=== PATIENT | female | born 1960 | race Caucasian/White ===

== ENCOUNTER 2021-01-11 14:35 | Inpatient (IN) | payer MEDICAID, OTHER ==
[~2021-01-11] VITALS: Ht 175.3 cm; Wt 104.3 kg
[2021-01-11] MEDS ORDERED: InsuLIN REG 1unit/0.01ml Soln (100units/ml) IV ONE (14:45)
[2021-01-11] MEDS ORDERED: SODIUM CHLORIDE 0.9% 1,000 ML IV ONE (14:45)
[2021-01-11 15:13] LABS: Hematocrit 45.7 % (36.0-46.0); Hemoglobin 15.1 g/dL (12.2-16.2); Mean Corpuscular Hemoglobin 28.1 pg (28.0-32.0); Mean Corpuscular Hgb Conc. 33.1 g/dL (32.0-36.0); Platelet Count (auto) 483 10^3/uL (140-450); Red Blood Cells 5.38 10^6/uL (4.0-5.20); Red Cell Distribution Width 15.7 % (11.8-14.3); White Blood Cell 9.1 10^3/uL (4.4-10.8)
[2021-01-11 15:17] LABS: Basophils % (manual) 0 (0.0-2.0); Blast Cells 0; Eosinophils % (manual) 0 (0-7); Reactive Lymphocytes 0
[2021-01-11 15:31] LABS: Alanine Aminotransferase 15 U/L (13-56); Albumin 2.8 g/dL (3.4-5.0); Anion Gap 16 (5-15); Blood Urea Nitrogen 16 mg/dL (7-18); Calcium 8.6 mg/dL (8.5-10.1); Carbon Dioxide 13 mmol/L (21-32); Chloride 103 mmol/L (98-107); Potassium 3.8 mmol/L (3.5-5.1); Sodium 132 mmol/L (136-145)
[2021-01-11 15:40] LABS: Alkaline Phosphatase 146 U/L (45-117); Aspartate Aminotransferase 15 U/L (15-37); BUN/Creatinine Ratio 12.3; Bilirubin, Total 0.6 mg/dL (0.2-1.0); CRP High Sensitivity 9.06 mg/dL (< 0.3); GFR African American 54 mL/min; GFR Non-African American 44 mL/min; Total Protein 7.6 g/dL (6.4-8.2)
[2021-01-11 15:47] LABS: Glucose 503 mg/dL (74-106)
[2021-01-11] MEDS ORDERED: MORPHINE SULF INJ 2 MG/ML SYRINGE 1ML IV ONE (16:15)
[2021-01-11] MEDS ORDERED: ONDANSETRON HCL 4 MG/2 ML VIAL IV ONE (16:15)
[2021-01-11 16:16] LABS: Band Neutrophils % (manual) 25; Lymphocytes % (manual) 18 (10.0-50.0); Metamyelocytes % 1; Monocytes % (manual) 2 (0-12); Myelocytes % 2; Promyelocytes % 1
[2021-01-11] MEDS ORDERED: INSULIN LANTUS (GLARGINE) 1 /0.01ml (100units/ml) SC ONE (16:45)
[2021-01-11] MEDS ORDERED: InsuLIN R (HUMAN) 100 UNITS in SODIUM CHL 0.9% 99 ML IV SCH ×2 (16:45→20:00)
[2021-01-11] MEDS ORDERED: DEXTROSE (50%) 50ML SYRG IV PRN (16:45)
[2021-01-11] MEDS ORDERED: SODIUM CHLORIDE 0.9% 2,000 ML IV ONE (17:30)
[2021-01-11] MEDS ORDERED: ACETAMINOPHEN 325 MG TAB PO PRN (17:30)
[2021-01-11] MEDS ORDERED: NITROGLYCERIN 0.4 MG SL TAB SL PRN (17:30)
[2021-01-11] MEDS ORDERED: MORPHINE SULF INJ 2 MG/ML SYRINGE 1ML IV PRN (17:30)
[2021-01-11] MEDS: ACCU-CHEK COMFORT CURVE STRIP VI SCH ×4 (18:24→22:30)
[2021-01-11 19:27] LABS: BUN/Creatinine Ratio 15.2; Calcium 8.8 mg/dL (8.5-10.1); Potassium 3.4 mmol/L (3.5-5.1)
[2021-01-11] MEDS: MORPHINE SULF INJ 2 MG/ML SYRINGE 1ML IV PRN (20:43)
[2021-01-12] MEDS: HYDROcodone-ACET 5/325MG TAB PO PRN ×2 (00:33→08:07)
[2021-01-12 01:44] LABS: Anion Gap 10 (5-15); Blood Urea Nitrogen 12 mg/dL (7-18); Carbon Dioxide 15 mmol/L (21-32); Chloride 113 mmol/L (98-107); Glucose 197 mg/dL (74-106); Potassium 3.4 mmol/L (3.5-5.1); Sodium 138 mmol/L (136-145)
[2021-01-12] MEDS: ACCU-CHEK COMFORT CURVE STRIP VI SCH ×11 (01:45→23:49)
[2021-01-12 01:47] LABS: GFR African American 87 mL/min; GFR Non-African American 72 mL/min
[2021-01-12] MEDS: MORPHINE SULF INJ 2 MG/ML SYRINGE 1ML IV PRN ×4 (03:18→20:47)
[2021-01-12 05:59] LABS: Potassium 3.4 mmol/L (3.5-5.1)
[2021-01-12 06:10] LABS: BUN/Creatinine Ratio 14.5; Calcium 8.9 mg/dL (8.5-10.1)
[2021-01-12] MEDS: InsuLIN R (HUMAN) 100 UNITS in SODIUM CHL 0.9% 99 ML IV SCH ×2 (06:15→07:39)
[2021-01-12] MEDS ORDERED: DEXTROSE (50%) 50ML SYRG IV PRN ×2 (08:00)
[2021-01-12] MEDS ORDERED: InsuLIN REG 1unit/0.01ml Soln (100units/ml) SC SCH (08:00)
[2021-01-12] MEDS ORDERED: ACCU-CHEK COMFORT CURVE STRIP VI SCH (08:00)
[2021-01-12] MEDS: InsuLIN REG 1unit/0.01ml Soln (100units/ml) SC SCH ×5 (09:04→23:54)
[2021-01-12] MEDS ORDERED: INSULIN LANTUS (GLARGINE) 1 /0.01ml (100units/ml) SC SCH ×2 (10:00→17:00)
[2021-01-12] MEDS ORDERED: IOHEXOL 350 MG/ML 100ML IJ ONE (10:26)
[2021-01-12] MEDS ORDERED: POTASSIUM EFFERVESENT TAB 25 MEQ PO ONE (10:30)
[2021-01-12] MEDS ORDERED: POLYETHYLENE GLYCOL 17 GM PWDR PO ONE (12:30)
[2021-01-12] MEDS: APIXABAN 5 MG TAB PO SCH ×2 (13:15→22:29)
[2021-01-12 15:17] LABS: Urine Bacteria FEW /hpf (None Seen); Urine Blood 1+ /uL (Negative); Urine Specific Gravity 1.021 (1.001-1.035); Urine WBC 1 /hpf (0 - 5)
[2021-01-12] MEDS: INSULIN LANTUS (GLARGINE) 1 /0.01ml (100units/ml) SC SCH (17:12)
[2021-01-12 18:41] VITALS: BP 121/60
[2021-01-12] MEDS ORDERED: QUET50TA PO (21:56)
[2021-01-12] MEDS ORDERED: GLIP10TA9 PO (21:56)
[2021-01-12 22:00] VITALS: BP 120/69
[2021-01-12] MEDS ORDERED: APIXABAN 5 MG TAB PO SCH (22:00)
[2021-01-12] MEDS: DOCUSATE SOD 100 MG CAP PO SCH (22:28)
[2021-01-13] MEDS: ACCU-CHEK COMFORT CURVE STRIP VI SCH ×5 (04:04→20:20)
[2021-01-13] MEDS: MORPHINE SULF INJ 2 MG/ML SYRINGE 1ML IV PRN ×4 (04:08→22:05)
[2021-01-13] MEDS: InsuLIN REG 1unit/0.01ml Soln (100units/ml) SC SCH ×5 (04:09→20:24)
[2021-01-13 05:00] VITALS: BP 125/80
[2021-01-13] MEDS: HYDROcodone-ACET 5/325MG TAB PO PRN ×2 (08:10→20:23)
[2021-01-13 09:00] VITALS: BP 100/64
[2021-01-13] MEDS: DOCUSATE SOD 100 MG CAP PO SCH ×2 (10:08→22:05)
[2021-01-13] MEDS: APIXABAN 5 MG TAB PO SCH ×2 (10:08→22:05)
[2021-01-13 13:00] VITALS: BP 110/68
[2021-01-13] MEDS ORDERED: BLOO-200 XX (15:14)
[2021-01-13] MEDS ORDERED: DOCU100C10 PO (15:14)
[2021-01-13] MEDS ORDERED: INSLANTI SC (15:14)
[2021-01-13] MEDS ORDERED: INSU100I43 SC (15:14)
[2021-01-13] MEDS ORDERED: APIX5TAB PO (15:14)
[2021-01-13] MEDS ORDERED: ALCO1PAD XX (15:14)
[2021-01-13] MEDS: INSULIN LANTUS (GLARGINE) 1 /0.01ml (100units/ml) SC SCH (16:40)
[2021-01-13 16:42] VITALS: BP 107/72
[2021-01-14] MEDS: ACCU-CHEK COMFORT CURVE STRIP VI SCH ×5 (00:23→15:35)
[2021-01-14] MEDS: InsuLIN REG 1unit/0.01ml Soln (100units/ml) SC SCH ×5 (00:25→15:36)
[2021-01-14] MEDS: MORPHINE SULF INJ 2 MG/ML SYRINGE 1ML IV PRN ×3 (04:20→16:16)
[2021-01-14 05:00] VITALS: BP 109/69
[2021-01-14 09:00] VITALS: BP 119/77
[2021-01-14] MEDS: DOCUSATE SOD 100 MG CAP PO SCH (09:09)
[2021-01-14] MEDS: APIXABAN 5 MG TAB PO SCH (09:09)
[2021-01-14 13:00] VITALS: BP 122/88
[2021-01-14 16:55] VITALS: BP 113/78
[2021-01-14] MEDS: INSULIN LANTUS (GLARGINE) 1 /0.01ml (100units/ml) SC SCH (17:13)
[2021-01-19] MEDS ORDERED: APIXABAN 5 MG TAB PO SCH (22:00)
== END 2021-01-14 19:05 | disposition home health service (06) | DRG 420 ==
LOC: ER 14:35 → EDBD 14:35 → TELE 17:39 → TELE-CENTR 01-12 17:48
PROVIDERS: ADMIT Internal Medicine; ATTEND Internal Medicine
DX: E11.10 Type 2 diabetes mellitus with ketoacidosis without coma (principal); I26.99 Other pulmonary embolism without acute cor pulmonale; J96.00 Acute respiratory failure, unspecified whether with hypoxia or hypercapnia; D73.5 Infarction of spleen; E66.9 Obesity, unspecified; Z68.34 Body mass index [BMI] 34.0-34.9, adult; I11.0 Hypertensive heart disease with heart failure; I25.10 Atherosclerotic heart disease of native coronary artery without angina pectoris; I50.9 Heart failure, unspecified; J98.11 Atelectasis; Z20.822 Contact with and (suspected) exposure to COVID-19; Z79.01 Long term (current) use of anticoagulants; Z79.4 Long term (current) use of insulin; Z86.718 Personal history of other venous thrombosis and embolism; Z89.511 Acquired absence of right leg below knee; Z89.512 Acquired absence of left leg below knee; Z89.612 Acquired absence of left leg above knee; Z90.710 Acquired absence of both cervix and uterus; Z90.49 Acquired absence of other specified parts of digestive tract; G89.29 Other chronic pain; M25.512 Pain in left shoulder; R91.1 Solitary pulmonary nodule; Z88.8 Allergy status to other drugs, medicaments and biological substances; D68.59 Other primary thrombophilia
CPT/HCPCS: 36415; 36600; 71045; 71275; 80048; 80053; 81001; 82728; 82805; 82962; 83036; 83735; 83880; 84484; 85007; 85027; 85379; 86141; 87426; 93005; 93306; 93970; 96365; 96372; 96375; 99291; G0378; J1815; J2405

== ENCOUNTER 2021-02-14 01:15 | Emergency (ER) | payer MEDICAID ==
[~2021-02-14] VITALS: Ht 175.3 cm; Wt 90.7 kg
[~2021-02-14 01:15] MED LIST: ALCO1PAD XX; APIX5TAB PO; BLOO-200 XX; DOCU100C10 PO; INSLANTI SC; INSU100I43 SC; QUET50TA PO
[2021-02-14 03:10] LABS: Hemoglobin 11.2 g/dL (12.2-16.2); Mean Corpuscular Volume 85.4 fL (80.0-100.0)
[2021-02-14 03:11] LABS: Hematocrit 36.8 % (36.0-46.0); Mean Corpuscular Hgb Conc. 30.4 g/dL (32.0-36.0); Platelet Count (auto) 717 10^3/uL (140-450); Red Blood Cells 4.32 10^6/uL (4.0-5.20); White Blood Cell 16.9 10^3/uL (4.4-10.8)
[2021-02-14 03:19] LABS: Basophils % (manual) 0 (0.0-2.0); Blast Cells 0; Promyelocytes % 0; Reactive Lymphocytes 0
[2021-02-14 03:23] LABS: INR 1.02 (0.9-1.15)
[2021-02-14 03:31] LABS: Potassium 3.3 mmol/L (3.5-5.1)
[2021-02-14 03:42] LABS: Albumin 2.5 g/dL (3.4-5.0); BUN/Creatinine Ratio 16.9; Bilirubin, Total 0.4 mg/dL (0.2-1.0); CRP High Sensitivity 12.4 mg/dL (< 0.3); Calcium 8.8 mg/dL (8.5-10.1)
[2021-02-14] MEDS ORDERED: POTASSIUM CHL 20MEQ/100ML 100 ML IV ONE (05:15)
[2021-02-14] MEDS ORDERED: SODIUM CHLORIDE 0.9% 1,000 ML IV ONE (05:15)
[2021-02-14] MEDS ORDERED: OXYCODONE W/ ACETAMINOPHEN 5/325MG TABLET PO ONE (05:15)
[2021-02-14] MEDS ORDERED: IOHEXOL 300 MG/ML 100ML BOTTLE IJ ONE (05:18)
[2021-02-14 05:35] LABS: Band Neutrophils % (manual) 6; Eosinophils % (manual) 1 (0-7); Lymphocytes % (manual) 24 (10.0-50.0); Metamyelocytes % 2; Monocytes % (manual) 7 (0-12); Myelocytes % 1
[2021-02-14] MEDS ORDERED: PIPERACILLIN-TAZOB 3.375GM 100 ML IV ONE (06:00)
[2021-02-14] MEDS ORDERED: ENOXAPARIN SOD 100 MG/1 ML SYRINGE SC ONE (06:30)
[2021-02-14] MEDS ORDERED: IOHEXOL 350 MG/ML 100ML IJ ONE (10:49)
[2021-02-14] MEDS ORDERED: SODIUM CHLORIDE 0.9% 500 ML IV ONE (11:00)
[2021-02-14 12:24] LABS: Urine Bacteria NONE SEEN /hpf (None Seen); Urine Blood Negative /uL (Negative); Urine Specific Gravity 1.025 (1.001-1.035); Urine WBC 3 /hpf (0 - 5)
[2021-02-14] MEDS ORDERED: HYDROmorphone HCL 2 MG/ML VL IV ONE ×2 (13:30→18:15)
[2021-02-14] MEDS ORDERED: HEPARIN DRIP/D5W 100UNITS/ML 250 ML IV SCH (15:15)
[2021-02-14] MEDS ORDERED: HEPARIN SODIUM (PORCINE) 5000 UNITS/ML 1ML VIAL IV ONE (15:15)
[2021-02-14 18:04] LABS: INR 1.1 (0.9-1.15); Partial Thromboplastin Time 43.1 sec (23.0-31.2)
[2021-02-14 21:00] VITALS: BP 153/70
== END 2021-02-14 21:14 | disposition short-term general hospital (02) ==
LOC: EDBD 01:15 → ER 01:16
DX: I26.99 Other pulmonary embolism without acute cor pulmonale (principal); D73.5 Infarction of spleen; M79.604 Pain in right leg; F41.9 Anxiety disorder, unspecified; E11.9 Type 2 diabetes mellitus without complications; I10 Essential (primary) hypertension; E43 Unspecified severe protein-calorie malnutrition; E66.01 Morbid (severe) obesity due to excess calories; K46.9 Unspecified abdominal hernia without obstruction or gangrene; E11.65 Type 2 diabetes mellitus with hyperglycemia; Z20.822 Contact with and (suspected) exposure to COVID-19; Z86.718 Personal history of other venous thrombosis and embolism; Z89.612 Acquired absence of left leg above knee; Z68.29 Body mass index [BMI] 29.0-29.9, adult; Z89.511 Acquired absence of right leg below knee; Z79.899 Other long term (current) drug therapy; Z88.1 Allergy status to other antibiotic agents; Z88.8 Allergy status to other drugs, medicaments and biological substances
CPT/HCPCS: 36415; 71045; 73552; 74177; 75635; 80053; 81001; 82962; 83605; 83690; 83735; 83880; 84484; 85007; 85027; 85379; 85610; 85652; 85730; 86141; 87040; 87086; 87426; 93005; 93971; 96361; 96365; 96366; 96367; 96372; 96375; 96376; 99285; C9803; J1170; J1644; J1650; J2543; J3480; J7040; Q9967; U0003; 96368

== ENCOUNTER 2021-06-20 12:56 | Emergency (ER) | payer MEDICAID ==
[2021-06-20 13:56] LABS: Hematocrit 41.9 % (36.0-46.0); Hemoglobin 14.2 g/dL (12.2-16.2); Mean Corpuscular Hemoglobin 28.9 pg (28.0-32.0); Mean Corpuscular Hgb Conc. 33.8 g/dL (32.0-36.0); Mean Corpuscular Volume 85.6 fL (80.0-100.0); White Blood Cell 7.4 10^3/uL (4.4-10.8)
[2021-06-20 14:09] LABS: Band Neutrophils % (manual) 0; Basophils % (manual) 0 (0.0-2.0); Blast Cells 0; Metamyelocytes % 0; Myelocytes % 0; Promyelocytes % 0
[2021-06-20 14:16] LABS: Albumin 2.9 g/dL (3.4-5.0); Calcium 8.6 mg/dL (8.5-10.1); Potassium 4.5 mmol/L (3.5-5.1)
[2021-06-20 14:19] LABS: BUN/Creatinine Ratio 25.7; Bilirubin, Total 0.5 mg/dL (0.2-1.0); Total Protein 7.4 g/dL (6.4-8.2)
[2021-06-20 17:04] LABS: Eosinophils % (manual) 2 (0-7); Lymphocytes % (manual) 34 (10.0-50.0); Monocytes % (manual) 14 (0-12); Reactive Lymphocytes 2
[2021-06-20] MEDS ORDERED: ONDANSETRON HCL 4 MG/2 ML VIAL IV ONE (18:00)
[2021-06-20] MEDS ORDERED: MORPHINE SULFATE 4 MG/ML SYR/VIAL IV ONE (18:00)
[2021-06-20] MEDS ORDERED: SODIUM CHLORIDE 0.9% 1,000 ML IV ONE (18:00)
[2021-06-20] MEDS ORDERED: IOHEXOL 300 MG/ML 100ML BOTTLE IJ ONE (20:47)
[2021-06-20] MEDS ORDERED: MORPHINE SULF INJ 2 MG/ML SYRINGE 1ML ONE (21:26)
[2021-06-20] MEDS ORDERED: MORPHINE SULF INJ 2 MG/ML SYRINGE 1ML IV ONE (22:00)
[2021-06-21] VITALS: BP 107/63
[2021-06-21] MEDS ORDERED: ONDANSETRON HCL 4 MG/2 ML VIAL IV ONE (04:15)
[2021-06-21] MEDS ORDERED: ACETAMINOPHEN 500 MG TAB PO ONE (04:15)
[2021-06-21] MEDS ORDERED: fentaNYL CITRATE 100 MCG/2 ML VL IV ONE ×2 (04:15→04:45)
== END 2021-06-21 07:53 | disposition home or self-care (01) ==
LOC: EDBD 12:56 → ER 12:56
DX: Z48.00 Encounter for change or removal of nonsurgical wound dressing (principal); R21 Rash and other nonspecific skin eruption; R22.2 Localized swelling, mass and lump, trunk; F41.9 Anxiety disorder, unspecified; E11.9 Type 2 diabetes mellitus without complications; Z89.619 Acquired absence of unspecified leg above knee; Z89.519 Acquired absence of unspecified leg below knee; Z90.49 Acquired absence of other specified parts of digestive tract; Z79.899 Other long term (current) drug therapy; Z88.1 Allergy status to other antibiotic agents; Z88.8 Allergy status to other drugs, medicaments and biological substances
CPT/HCPCS: 36415; 74177; 80053; 83605; 85007; 85027; 87040; 96361; 96374; 96375; 96376; 99285; J2270; J2405; J3010; Q9967

== ENCOUNTER 2021-11-29 21:21 | Emergency (ER) | payer MEDICAID ==
[~2021-11-29] VITALS: Ht 167.6 cm; Wt 109.8 kg
[2021-11-29] MEDS ORDERED: HYDROcodone-ACET 10/325MG TAB PO ONE (21:45)
[2021-11-29] MEDS ORDERED: MORPHINE SULFATE INJECTION 2 MG/ML SYRG IM ONE (23:00)
[2021-11-30 04:52] VITALS: BP 140/105
== END 2021-11-30 07:13 | disposition home or self-care (01) ==
LOC: ER 21:21 → EDUNIT# 21:21 → EDSEX 21:21 → EDBD 21:21 → ER 11-30 07:13
DX: G89.29 Other chronic pain (principal); M79.605 Pain in left leg; M79.604 Pain in right leg; E66.9 Obesity, unspecified; E11.9 Type 2 diabetes mellitus without complications; E03.9 Hypothyroidism, unspecified; Z68.39 Body mass index [BMI] 39.0-39.9, adult; Z89.612 Acquired absence of left leg above knee; Z89.611 Acquired absence of right leg above knee; Z90.49 Acquired absence of other specified parts of digestive tract; Z90.710 Acquired absence of both cervix and uterus; Z79.4 Long term (current) use of insulin; Z79.899 Other long term (current) drug therapy; Z88.1 Allergy status to other antibiotic agents; Z88.8 Allergy status to other drugs, medicaments and biological substances
CPT/HCPCS: 96372; 99283; J2270

== ENCOUNTER 2021-12-12 01:48 | Inpatient (IN) | payer MEDICAID ==
[~2021-12-12] VITALS: Ht 137.2 cm; Wt 120.1 kg
[2021-12-12] MEDS ORDERED: MORPHINE SULFATE 4 MG/ML SYR/VIAL IV ONE (02:15)
[2021-12-12] MEDS ORDERED: ONDANSETRON HCL 4 MG/2 ML VIAL IV ONE ×3 (02:15→15:30)
[2021-12-12 04:15] LABS: Potassium 4.9 mmol/L (3.5-5.1)
[2021-12-12 04:19] LABS: Albumin 2.7 g/dL (3.4-5.0); Calcium 8.8 mg/dL (8.5-10.1)
[2021-12-12 04:22] LABS: Bilirubin, Total 0.4 mg/dL (0.2-1.0); Total Protein 7.9 g/dL (6.4-8.2)
[2021-12-12 04:30] LABS: Basophils # (auto) 0.1 10 ^3/uL (0-0.2); Basophils % (auto) 0.3 % (0.0-2.0); Monocytes # (auto) 0.8 10 ^3/uL (0-1.3)
[2021-12-12 04:32] LABS: Eosinophils # (auto) 0.1 10 ^3/uL (0-0.8); Eosinophils % (auto) 0.2 % (0.0-7.0); Hemoglobin 12.7 g/dL (12.2-16.2); Lymphocytes # (auto) 1.3 10 ^3/uL (0.4-5.4); Lymphocytes % (auto) 6.1 % (10.0-50.0); Mean Corpuscular Hemoglobin 28.2 pg (28.0-32.0); Mean Corpuscular Hgb Conc. 32.6 g/dL (32.0-36.0); Mean Corpuscular Volume 86.7 fL (80.0-100.0); Monocytes % (auto) 3.6 % (0.0-12.0); Neutrophils # (auto) 19.5 10 ^3/uL (1.6-8.6); Neutrophils % (auto) 89.8 % (37.0-80.0); Nucleated Red Blood Cells % 0.1 %; Red Blood Cells 4.49 10^6/uL (4.0-5.20); Red Cell Distribution Width 14.2 % (11.8-14.3); White Blood Cell 21.7 10^3/uL (4.4-10.8)
[2021-12-12] MEDS ORDERED: SODIUM CHLORIDE 0.9% 1,000 ML IV ONE (05:00)
[2021-12-12] MEDS ORDERED: InsuLIN REG 1unit/0.01ml Soln (100units/ml) IV ONE ×2 (05:00→16:45)
[2021-12-12 05:54] LABS: Urine Bacteria FEW /hpf (None Seen); Urine Blood TRACE /uL (Negative); Urine Specific Gravity 1.016 (1.001-1.035); Urine WBC 1184 /hpf (0 - 5); Urine WBC Clumps PRESENT /hpf (None Seen)
[2021-12-12] MEDS ORDERED: cefTRIAXone 1GM/50ML D5W 50 ML IV ONE (06:00)
[2021-12-12] MEDS ORDERED: MORPHINE SULFATE INJECTION 2 MG/ML SYRG IV ONE ×2 (08:45→15:30)
[2021-12-12] MEDS ORDERED: FUROSEMIDE 40 MG/4 ML VIAL IV ONE (10:00)
[2021-12-12] MEDS ORDERED: fentaNYL CITRATE 100 MCG/2 ML VL IV ONE (11:45)
[2021-12-12] MEDS ORDERED: DEXTROSE (50%) 50ML SYRG IV PRN ×2 (13:00→20:30)
[2021-12-12] MEDS ORDERED: levoFLOXacin 500MG 100 ML IV ONE (13:00)
[2021-12-12] MEDS ORDERED: METOCLOPRAMIDE HCL 5MG/ml INJ 2ml VIAL IV PRN (15:45)
[2021-12-12] MEDS ORDERED: ACETAMINOPHEN 325 MG TAB PO PRN (15:45)
[2021-12-12] MEDS ORDERED: PIPERACILLIN-TAZOB 3.375GM 100 ML IV ONE (15:45)
[2021-12-12] MEDS: ACCU-CHEK COMFORT CURVE STRIP VI SCH ×3 (16:00→23:34)
[2021-12-12] MEDS: InsuLIN REG 1unit/0.01ml Soln (100units/ml) SC SCH ×3 (17:01→23:34)
[2021-12-12] MEDS ORDERED: SODIUM CHLORIDE 0.9% 2,000 ML IV ONE (18:00)
[2021-12-12] MEDS ORDERED: SODIUM CHLORIDE 0.9% 1,000 ML IV SCH (18:00)
[2021-12-12] MEDS ORDERED: InsuLIN REG 1unit/0.01ml Soln (100units/ml) SC ONE (20:15)
[2021-12-12 20:30] VITALS: BP 147/97
[2021-12-12] MEDS: MORPHINE SULFATE INJECTION 2 MG/ML SYRG IV PRN (20:46)
[2021-12-12] MEDS ORDERED: INSLANTI SC ×2 (21:37)
[2021-12-12] MEDS ORDERED: ALPR0.5T PO (21:37)
[2021-12-12] MEDS ORDERED: ZOLP10TA PO (21:37)
[2021-12-12] MEDS ORDERED: HYDR-4072 PO (21:37)
[2021-12-12] MEDS ORDERED: INSLISPI SC (21:37)
[2021-12-12 21:46] VITALS: BP 129/87
[2021-12-12 22:00] VITALS: BP 142/97
[2021-12-12] MEDS: INSULIN LANTUS (GLARGINE) 1 /0.01ml (100units/ml) SC SCH (23:33)
[2021-12-13] MEDS ORDERED: SODIUM CHLORIDE 0.9% 1,000 ML IV SCH
[2021-12-13] MEDS ORDERED: FUROSEMIDE 20 MG/2 ML VIAL IV ONE
[2021-12-13] MEDS: HYDROcodone-ACET 5/325MG TAB PO PRN ×3 (00:23→17:43)
[2021-12-13] MEDS ORDERED: IPRATROPIUM BROM 0.5 MG/2.5ML INH SOL NEB PRN (00:45)
[2021-12-13] MEDS ORDERED: ALBUTEROL SULF 2.5 MG/0.5ML(0.5%) NEB SOLN NEB PRN (00:45)
[2021-12-13 00:48] LABS: Glucose 560 mg/dL (74-106)
[2021-12-13 00:49] LABS: Sodium 131 mmol/L (136-145)
[2021-12-13 00:50] LABS: Anion Gap 13 (5-15); BUN/Creatinine Ratio 11.1; Blood Urea Nitrogen 41 mg/dL (7-18); Carbon Dioxide 16 mmol/L (21-32); Chloride 102 mmol/L (98-107); GFR African American 16 mL/min; GFR Non-African American 13 mL/min
[2021-12-13] MEDS ORDERED: CALCIUM GLUC 1,000mg/50ml-NS 50 ML IV ONE ×2 (01:15→02:17)
[2021-12-13] MEDS ORDERED: SODIUM BICARBONATE 8.4% INJ 50ML SYRINGE IV ONE (01:15)
[2021-12-13] MEDS: DEXTROSE (50%) 50ML SYRG IV ONE (01:15)
[2021-12-13] MEDS ORDERED: InsuLIN REG 1unit/0.01ml Soln (100units/ml) IV ONE (01:15)
[2021-12-13] MEDS: MORPHINE SULFATE INJECTION 2 MG/ML SYRG IV PRN ×3 (03:49→21:52)
[2021-12-13] MEDS: InsuLIN REG 1unit/0.01ml Soln (100units/ml) SC SCH ×5 (04:03→21:37)
[2021-12-13] MEDS: ACCU-CHEK COMFORT CURVE STRIP VI SCH ×5 (04:04→21:30)
[2021-12-13 05:00] VITALS: BP 119/73
[2021-12-13 05:26] LABS: Hematocrit 39.3 % (36.0-46.0); Hemoglobin 12.7 g/dL (12.2-16.2); Mean Corpuscular Hemoglobin 27.7 pg (28.0-32.0); Mean Corpuscular Hgb Conc. 32.2 g/dL (32.0-36.0); Red Blood Cells 4.57 10^6/uL (4.0-5.20); Red Cell Distribution Width 14.4 % (11.8-14.3)
[2021-12-13 05:42] LABS: Calcium 8.6 mg/dL (8.5-10.1); Potassium 4.9 mmol/L (3.5-5.1)
[2021-12-13 05:45] LABS: BUN/Creatinine Ratio 10.8
[2021-12-13 06:26] LABS: White Blood Cell 31.7 10^3/uL (4.4-10.8)
[2021-12-13 06:28] LABS: Basophils % (manual) 0 (0.0-2.0); Eosinophils % (manual) 0 (0-7); Metamyelocytes % 0; Myelocytes % 0; Promyelocytes % 0
[2021-12-13 06:29] LABS: Blast Cells 0; Reactive Lymphocytes 0
[2021-12-13] MEDS: INSULIN LANTUS (GLARGINE) 1 /0.01ml (100units/ml) SC SCH ×2 (06:42→21:39)
[2021-12-13 08:36] LABS: Band Neutrophils % (manual) 7; Lymphocytes % (manual) 9 (10.0-50.0); Monocytes % (manual) 7 (0-12)
[2021-12-13 09:10] VITALS: BP 111/75
[2021-12-13] MEDS: HEPARIN SODIUM (PORCINE) 5000 UNITS/ML 1ML VIAL SC SCH ×2 (09:39→21:31)
[2021-12-13] MEDS ORDERED: levoFLOXacin 500MG 100 ML IV SCH (10:00)
[2021-12-13] MEDS: MEROPENEM 500MG IVPB 50 ML IV SCH ×2 (10:31→21:30)
[2021-12-13 12:43] VITALS: BP 117/70
[2021-12-13 17:07] VITALS: BP 113/79
[2021-12-13 19:34] LABS: Basophils # (auto) 0.1 10 ^3/uL (0-0.2); Basophils % (auto) 0.5 % (0.0-2.0); Eosinophils # (auto) 0 10 ^3/uL (0-0.8); Hematocrit 35.9 % (36.0-46.0); Hemoglobin 11.7 g/dL (12.2-16.2); Lymphocytes # (auto) 1.4 10 ^3/uL (0.4-5.4); Lymphocytes % (auto) 5.6 % (10.0-50.0); Mean Corpuscular Hgb Conc. 32.7 g/dL (32.0-36.0); Mean Corpuscular Volume 85.7 fL (80.0-100.0); Monocytes # (auto) 1.5 10 ^3/uL (0-1.3); Monocytes % (auto) 5.9 % (0.0-12.0); Red Blood Cells 4.19 10^6/uL (4.0-5.20); Red Cell Distribution Width 14.6 % (11.8-14.3)
[2021-12-13 19:48] LABS: BUN/Creatinine Ratio 9.3; Calcium 8.2 mg/dL (8.5-10.1); Potassium 5.1 mmol/L (3.5-5.1)
[2021-12-13 22:00] VITALS: BP 104/71
[2021-12-14] MEDS: ACCU-CHEK COMFORT CURVE STRIP VI SCH ×6 (01:05→21:42)
[2021-12-14] MEDS: InsuLIN REG 1unit/0.01ml Soln (100units/ml) SC SCH ×6 (01:06→21:51)
[2021-12-14] MEDS: HYDROcodone-ACET 5/325MG TAB PO PRN (03:00)
[2021-12-14] MEDS: MORPHINE SULFATE INJECTION 2 MG/ML SYRG IV PRN ×3 (04:45→21:42)
[2021-12-14 05:44] LABS: Hematocrit 34.8 % (36.0-46.0); Hemoglobin 11.1 g/dL (12.2-16.2); Mean Corpuscular Hemoglobin 27.6 pg (28.0-32.0); Mean Corpuscular Volume 86.4 fL (80.0-100.0); Red Blood Cells 4.03 10^6/uL (4.0-5.20); Red Cell Distribution Width 14.7 % (11.8-14.3); White Blood Cell 25.4 10^3/uL (4.4-10.8)
[2021-12-14 05:56] LABS: Basophils % (manual) 0 (0.0-2.0); Blast Cells 0; Eosinophils % (manual) 0 (0-7); Metamyelocytes % 0; Myelocytes % 0; Promyelocytes % 0; Reactive Lymphocytes 0
[2021-12-14 05:57] LABS: Potassium 5.1 mmol/L (3.5-5.1)
[2021-12-14 06:01] LABS: Calcium 8.2 mg/dL (8.5-10.1)
[2021-12-14] MEDS: INSULIN LANTUS (GLARGINE) 1 /0.01ml (100units/ml) SC SCH ×2 (07:17→21:52)
[2021-12-14 08:40] VITALS: BP 110/53
[2021-12-14] MEDS: MEROPENEM 500MG IVPB 50 ML IV SCH (09:07)
[2021-12-14] MEDS: HEPARIN SODIUM (PORCINE) 5000 UNITS/ML 1ML VIAL SC SCH ×2 (10:00→21:51)
[2021-12-14 10:56] LABS: Phosphorus 5.6 mg/dL (2.5-4.90)
[2021-12-14 13:00] VITALS: BP 130/67
[2021-12-14] MEDS: SODIUM BICARBONATE 50ML VIAL 50 ML in SOD CHL 0.45% 1,000 ML IV SCH ×2 (13:22→19:38)
[2021-12-14 13:31] LABS: Band Neutrophils % (manual) 4; Lymphocytes % (manual) 4 (10.0-50.0); Monocytes % (manual) 6 (0-12)
[2021-12-14 17:00] VITALS: BP 112/68
[2021-12-14 22:00] VITALS: BP 111/70
[2021-12-14] MEDS ORDERED: BUMETANIDE 2.5mg/10ml (0.25 mg/ml) INJ IV ONE (23:30)
[2021-12-15] MEDS: ACCU-CHEK COMFORT CURVE STRIP VI SCH ×6 (00:48→20:20)
[2021-12-15] MEDS: InsuLIN REG 1unit/0.01ml Soln (100units/ml) SC SCH ×6 (00:48→20:16)
[2021-12-15] MEDS: SODIUM BICARBONATE 50ML VIAL 50 ML in SOD CHL 0.45% 1,000 ML IV SCH ×3 (02:48→22:49)
[2021-12-15 05:00] VITALS: BP 133/73
[2021-12-15] MEDS: MORPHINE SULFATE INJECTION 2 MG/ML SYRG IV PRN ×2 (05:06→10:26)
[2021-12-15 05:21] LABS: Hematocrit 33.6 % (36.0-46.0); Hemoglobin 10.6 g/dL (12.2-16.2); Mean Corpuscular Hemoglobin 27.2 pg (28.0-32.0); Mean Corpuscular Hgb Conc. 31.6 g/dL (32.0-36.0); Mean Corpuscular Volume 85.9 fL (80.0-100.0); Red Blood Cells 3.91 10^6/uL (4.0-5.20); Red Cell Distribution Width 14.8 % (11.8-14.3); White Blood Cell 27.5 10^3/uL (4.4-10.8)
[2021-12-15 05:35] LABS: Basophils % (manual) 0 (0.0-2.0); Blast Cells 0; Calcium 7.9 mg/dL (8.5-10.1); Eosinophils % (manual) 0 (0-7); Myelocytes % 0; Potassium 5.2 mmol/L (3.5-5.1); Promyelocytes % 0; Reactive Lymphocytes 0
[2021-12-15 05:38] LABS: BUN/Creatinine Ratio 8.3
[2021-12-15 06:29] LABS: Band Neutrophils % (manual) 3; Lymphocytes % (manual) 5 (10.0-50.0); Metamyelocytes % 1; Monocytes % (manual) 2 (0-12)
[2021-12-15] MEDS: INSULIN LANTUS (GLARGINE) 1 /0.01ml (100units/ml) SC SCH ×2 (07:05→22:48)
[2021-12-15 08:00] VITALS: BP 170/76
[2021-12-15] MEDS ORDERED: SODIUM CHL 0.9% 1000 ML BAG XX ONE (08:15)
[2021-12-15] MEDS: BUMETANIDE 2.5mg/10ml (0.25 mg/ml) INJ IV SCH ×2 (08:30→18:40)
[2021-12-15 09:00] VITALS: BP 170/76
[2021-12-15] MEDS: HEPARIN SODIUM (PORCINE) 5000 UNITS/ML 1ML VIAL SC SCH ×2 (10:33→22:48)
[2021-12-15 13:26] VITALS: BP 141/82
[2021-12-15] MEDS: HYDROcodone-ACET 5/325MG TAB PO PRN ×2 (13:49→23:00)
[2021-12-15 17:00] VITALS: BP 132/73
[2021-12-15] MEDS ORDERED: BUMETANIDE 2.5mg/10ml (0.25 mg/ml) INJ IV SCH (18:00)
[2021-12-15 21:00] VITALS: BP 126/71
[2021-12-15 22:06] LABS: BUN/Creatinine Ratio 8.7; Calcium 8.2 mg/dL (8.5-10.1)
[2021-12-15 22:32] LABS: Potassium 6.1 mmol/L (3.5-5.1)
[2021-12-15] MEDS ORDERED: DEXTROSE (50%) 50ML SYRG IV ONE (23:30)
[2021-12-15] MEDS ORDERED: ALBUTEROL SULF 2.5 MG/0.5ML(0.5%) NEB SOLN NEB ONE (23:30)
[2021-12-15] MEDS ORDERED: InsuLIN REG 1unit/0.01ml Soln (100units/ml) IV ONE (23:30)
[2021-12-16] MEDS: SODIUM ZIRCONIUM CYCL 10 GM PAK PO SCH ×2 (00:56→10:00)
[2021-12-16] MEDS: ACCU-CHEK COMFORT CURVE STRIP VI SCH ×7 (00:57→23:50)
[2021-12-16] MEDS: InsuLIN REG 1unit/0.01ml Soln (100units/ml) SC SCH ×7 (04:21→23:52)
[2021-12-16 05:00] VITALS: BP 129/64
[2021-12-16 06:11] LABS: Basophils # (auto) 0.1 10 ^3/uL (0-0.2); Basophils % (auto) 0.4 % (0.0-2.0); Eosinophils # (auto) 0 10 ^3/uL (0-0.8); Eosinophils % (auto) 0.1 % (0.0-7.0); Hematocrit 32.1 % (36.0-46.0); Hemoglobin 10.5 g/dL (12.2-16.2); Lymphocytes # (auto) 1.6 10 ^3/uL (0.4-5.4); Lymphocytes % (auto) 6.4 % (10.0-50.0); Mean Corpuscular Hemoglobin 28.1 pg (28.0-32.0); Mean Corpuscular Hgb Conc. 32.7 g/dL (32.0-36.0); Mean Corpuscular Volume 85.8 fL (80.0-100.0); Monocytes # (auto) 1.5 10 ^3/uL (0-1.3); Neutrophils # (auto) 21.7 10 ^3/uL (1.6-8.6); Neutrophils % (auto) 87.1 % (37.0-80.0); Red Blood Cells 3.74 10^6/uL (4.0-5.20); Red Cell Distribution Width 14.8 % (11.8-14.3); White Blood Cell 24.9 10^3/uL (4.4-10.8)
[2021-12-16] MEDS: BUMETANIDE 2.5mg/10ml (0.25 mg/ml) INJ IV SCH ×2 (06:15→18:07)
[2021-12-16 06:41] LABS: BUN/Creatinine Ratio 8.7
[2021-12-16 06:58] LABS: Potassium 5.7 mmol/L (3.5-5.1)
[2021-12-16] MEDS: INSULIN LANTUS (GLARGINE) 1 /0.01ml (100units/ml) SC SCH ×2 (07:00→22:00)
[2021-12-16] MEDS ORDERED: ALBUTEROL SULF 2.5 MG/0.5ML(0.5%) NEB SOLN NEB ONE (08:30)
[2021-12-16] MEDS ORDERED: DEXTROSE (50%) 50ML SYRG IV ONE (08:30)
[2021-12-16] MEDS ORDERED: InsuLIN REG 1unit/0.01ml Soln (100units/ml) IV ONE (08:30)
[2021-12-16] MEDS ORDERED: SODIUM ZIRCONIUM CYCL 10 GM PAK PO ONE (08:30)
[2021-12-16] MEDS: HEPARIN SODIUM (PORCINE) 5000 UNITS/ML 1ML VIAL SC SCH ×2 (10:00→22:04)
[2021-12-16] MEDS: MORPHINE SULFATE INJECTION 2 MG/ML SYRG IV PRN ×3 (11:30→23:55)
[2021-12-16 11:31] LABS: Calcium 8.1 mg/dL (8.5-10.1)
[2021-12-16 11:34] LABS: BUN/Creatinine Ratio 8.1
[2021-12-16] MEDS: SODIUM BICARBONATE 50ML VIAL 50 ML in SOD CHL 0.45% 1,000 ML IV SCH (14:30)
[2021-12-16 15:00] VITALS: BP 134/80
[2021-12-16] MEDS: ALBUMIN 25% 100 ML IV SCH ×2 (19:43→20:51)
[2021-12-16 22:00] VITALS: BP 128/68
[2021-12-17 00:44] LABS: BUN/Creatinine Ratio 8.4; Calcium 7.9 mg/dL (8.5-10.1)
[2021-12-17] MEDS ORDERED: DEXTROSE (50%) 50ML SYRG IV STA (01:21)
[2021-12-17] MEDS ORDERED: CALCIUM GLUC 1,000mg/50ml-NS 50 ML IV STA (01:21)
[2021-12-17] MEDS ORDERED: SODIUM BICARBONATE 8.4 % INJ 50ML VIAL IV STA (01:22)
[2021-12-17] MEDS ORDERED: InsuLIN REG 1unit/0.01ml Soln (100units/ml) IV ONE (01:30)
[2021-12-17] MEDS ORDERED: ALBUTEROL SULF 2.5 MG/0.5ML(0.5%) NEB SOLN ONE (03:14)
[2021-12-17] MEDS ORDERED: ALBUTEROL SULF 2.5 MG/0.5ML(0.5%) NEB SOLN NEB ONE (03:15)
[2021-12-17] MEDS ORDERED: SODIUM ZIRCONIUM CYCL 10 GM PAK PO ONE (03:15)
[2021-12-17 03:45] LABS: BUN/Creatinine Ratio 8.4
[2021-12-17] MEDS: InsuLIN REG 1unit/0.01ml Soln (100units/ml) SC SCH ×5 (04:00→19:58)
[2021-12-17] MEDS: ACCU-CHEK COMFORT CURVE STRIP VI SCH ×5 (04:04→19:57)
[2021-12-17 04:05] LABS: Potassium 5.6 mmol/L (3.5-5.1)
[2021-12-17] MEDS: HYDROcodone-ACET 5/325MG TAB PO PRN (04:06)
[2021-12-17 05:00] VITALS: BP 116/67
[2021-12-17] MEDS: SODIUM BICARBONATE 50ML VIAL 50 ML in SOD CHL 0.45% 1,000 ML IV SCH ×3 (05:10→20:02)
[2021-12-17 05:24] LABS: Basophils # (auto) 0.1 10 ^3/uL (0-0.2); Eosinophils # (auto) 0.1 10 ^3/uL (0-0.8); Monocytes # (auto) 1.4 10 ^3/uL (0-1.3)
[2021-12-17] MEDS: BUMETANIDE 2.5mg/10ml (0.25 mg/ml) INJ IV SCH (05:24)
[2021-12-17 05:30] LABS: Basophils % (auto) 0.3 % (0.0-2.0); Eosinophils % (auto) 0.4 % (0.0-7.0); Hematocrit 24.5 % (36.0-46.0); Hemoglobin 8.1 g/dL (12.2-16.2); Lymphocytes # (auto) 2.1 10 ^3/uL (0.4-5.4); Lymphocytes % (auto) 12.1 % (10.0-50.0); Mean Corpuscular Hemoglobin 28.1 pg (28.0-32.0); Mean Corpuscular Hgb Conc. 33.1 g/dL (32.0-36.0); Mean Corpuscular Volume 84.9 fL (80.0-100.0); Monocytes % (auto) 8.3 % (0.0-12.0); Neutrophils # (auto) 13.4 10 ^3/uL (1.6-8.6); Neutrophils % (auto) 78.9 % (37.0-80.0); Red Blood Cells 2.88 10^6/uL (4.0-5.20); Red Cell Distribution Width 14.4 % (11.8-14.3)
[2021-12-17 05:58] LABS: BUN/Creatinine Ratio 8.2; Calcium 8.2 mg/dL (8.5-10.1); Potassium 5.4 mmol/L (3.5-5.1)
[2021-12-17] MEDS: INSULIN LANTUS (GLARGINE) 1 /0.01ml (100units/ml) SC SCH ×2 (06:42→22:04)
[2021-12-17] MEDS ORDERED: HEPARIN SODIUM (PORCINE) 5000 UNITS/ML 1ML VIAL ONE (08:15)
[2021-12-17 09:00] VITALS: BP 134/70
[2021-12-17] MEDS: HEPARIN SODIUM (PORCINE) 5000 UNITS/ML 1ML VIAL SC SCH ×2 (09:20→22:04)
[2021-12-17] MEDS: SODIUM ZIRCONIUM CYCL 10 GM PAK PO SCH (09:59)
[2021-12-17 13:00] VITALS: BP 155/76
[2021-12-17] MEDS: BUMETANIDE INJECTION 12.5 MG in GIVE UN-DILUTED 0 ML IV SCH (13:01)
[2021-12-17 14:36] LABS: INR 1.04 (0.9-1.15); Partial Thromboplastin Time 33.6 sec (23.6-33.0)
[2021-12-17 22:11] LABS: BUN/Creatinine Ratio 8.1; Calcium 7.7 mg/dL (8.5-10.1)
[2021-12-17 22:22] LABS: Potassium 5.6 mmol/L (3.5-5.1)
[2021-12-18] MEDS: ACCU-CHEK COMFORT CURVE STRIP VI SCH ×6 (00:31→20:00)
[2021-12-18] MEDS: InsuLIN REG 1unit/0.01ml Soln (100units/ml) SC SCH ×6 (04:02→21:23)
[2021-12-18] MEDS: SODIUM BICARBONATE 50ML VIAL 50 ML in SOD CHL 0.45% 1,000 ML IV SCH (04:07)
[2021-12-18] MEDS: MORPHINE SULFATE INJECTION 2 MG/ML SYRG IV PRN ×3 (04:54→23:34)
[2021-12-18] MEDS: INSULIN LANTUS (GLARGINE) 1 /0.01ml (100units/ml) SC SCH ×2 (06:41→21:24)
[2021-12-18 06:53] LABS: Basophils # (auto) 0.1 10 ^3/uL (0-0.2); Lymphocytes # (auto) 1.2 10 ^3/uL (0.4-5.4); Neutrophils # (auto) 12.7 10 ^3/uL (1.6-8.6); Neutrophils % (auto) 82.8 % (37.0-80.0)
[2021-12-18 06:57] LABS: Basophils % (auto) 0.4 % (0.0-2.0); Eosinophils # (auto) 0.2 10 ^3/uL (0-0.8); Eosinophils % (auto) 1.2 % (0.0-7.0); Hematocrit 23.7 % (36.0-46.0); Hemoglobin 7.8 g/dL (12.2-16.2); Lymphocytes % (auto) 7.8 % (10.0-50.0); Mean Corpuscular Hgb Conc. 33.1 g/dL (32.0-36.0); Mean Corpuscular Volume 84.6 fL (80.0-100.0); Monocytes # (auto) 1.2 10 ^3/uL (0-1.3); Monocytes % (auto) 7.8 % (0.0-12.0); Nucleated Red Blood Cells % 0.1 %; Red Cell Distribution Width 15.2 % (11.8-14.3); White Blood Cell 15.3 10^3/uL (4.4-10.8)
[2021-12-18] MEDS ORDERED: SODIUM CHL 0.9% 1000 ML BAG XX ONE (07:00)
[2021-12-18 07:02] LABS: Calcium 7.9 mg/dL (8.5-10.1)
[2021-12-18 07:06] LABS: BUN/Creatinine Ratio 8.4
[2021-12-18 07:18] LABS: Potassium 5.7 mmol/L (3.5-5.1)
[2021-12-18 09:00] VITALS: BP 142/71
[2021-12-18] MEDS: SODIUM ZIRCONIUM CYCL 10 GM PAK PO SCH (09:40)
[2021-12-18] MEDS: HEPARIN SODIUM (PORCINE) 5000 UNITS/ML 1ML VIAL SC SCH ×2 (09:42→21:25)
[2021-12-18] MEDS: BUMETANIDE INJECTION 12.5 MG in GIVE UN-DILUTED 0 ML IV SCH (11:00)
[2021-12-18] MEDS ORDERED: CATHFLO ACTIVASE (ALTEPLASE) 2 MG VIAL IV ONE (14:00)
[2021-12-18] MEDS ORDERED: STERILE WATER 10 ML ONE (14:07)
[2021-12-18 14:20] VITALS: BP 126/71
[2021-12-18 17:00] VITALS: BP 139/79
[2021-12-18 20:00] VITALS: BP 134/76
[2021-12-18] MEDS ORDERED: EPOETIN ALFA-EPBX 10,000 UNIT/1ML VIAL SC ONE (21:00)
[2021-12-18 22:00] VITALS: BP 134/76
[2021-12-19] MEDS: ACCU-CHEK COMFORT CURVE STRIP VI SCH ×6 (00:28→20:00)
[2021-12-19] MEDS: InsuLIN REG 1unit/0.01ml Soln (100units/ml) SC SCH ×6 (03:58→20:00)
[2021-12-19 05:38] VITALS: BP 138/72
[2021-12-19] MEDS: INSULIN LANTUS (GLARGINE) 1 /0.01ml (100units/ml) SC SCH ×2 (06:28→21:28)
[2021-12-19] MEDS: HYDROcodone-ACET 5/325MG TAB PO PRN (06:33)
[2021-12-19] MEDS: MORPHINE SULFATE INJECTION 2 MG/ML SYRG IV PRN (08:24)
[2021-12-19 09:00] VITALS: BP 135/69
[2021-12-19] MEDS: SODIUM ZIRCONIUM CYCL 10 GM PAK PO SCH (09:14)
[2021-12-19] MEDS: HEPARIN SODIUM (PORCINE) 5000 UNITS/ML 1ML VIAL SC SCH ×2 (10:00→21:27)
[2021-12-19 13:00] VITALS: BP 145/70
[2021-12-19] MEDS ORDERED: LIDOCAINE 2%HCL (LOCAL ANESTH.) INJ 20ML MDV ONE (14:15)
[2021-12-19] MEDS ORDERED: HEPARIN SODIUM (PORCINE) 5000 UNITS/ML 1ML VIAL ONE (14:34)
[2021-12-19] MEDS ORDERED: fentaNYL CITRATE 5 ML ONE (14:34)
[2021-12-19] MEDS ORDERED: MIDAZOLAM HCL 2MG/2ML 2ml VIAL (1mg/ml) ONE (14:35)
[2021-12-19 17:00] VITALS: BP 126/78
[2021-12-19 19:16] LABS: BUN/Creatinine Ratio 8.7; Calcium 7.9 mg/dL (8.5-10.1)
[2021-12-19 20:00] VITALS: BP 134/76
[2021-12-19 20:22] LABS: Potassium 5.9 mmol/L (3.5-5.1)
[2021-12-19] MEDS: SODIUM CHLOR 0.9% PF (SALINE LOCK) 10ML VIAL/SYR IV SCH (21:24)
[2021-12-19 22:00] VITALS: BP 133/73
[2021-12-20] VITALS (7 sets, daily range): BP systolic 134–164; BP diastolic 72–85
[2021-12-20] MEDS: ACCU-CHEK COMFORT CURVE STRIP VI SCH ×6 (03:40→20:00)
[2021-12-20] MEDS: InsuLIN REG 1unit/0.01ml Soln (100units/ml) SC SCH ×6 (03:41→20:00)
[2021-12-20] MEDS: SODIUM CHLOR 0.9% PF (SALINE LOCK) 10ML VIAL/SYR IV SCH ×3 (06:50→21:14)
[2021-12-20] MEDS: INSULIN LANTUS (GLARGINE) 1 /0.01ml (100units/ml) SC SCH ×2 (06:50→21:14)
[2021-12-20] MEDS ORDERED: SODIUM CHL 0.9% 1000 ML BAG XX ONE (07:00)
[2021-12-20 07:38] LABS: BUN/Creatinine Ratio 8.5
[2021-12-20 08:03] LABS: Phosphorus 10.8 mg/dL (2.5-4.90); Potassium 6.1 mmol/L (3.5-5.1)
[2021-12-20] MEDS: HYDROcodone-ACET 5/325MG TAB PO PRN (09:02)
[2021-12-20] MEDS: HEPARIN SODIUM (PORCINE) 5000 UNITS/ML 1ML VIAL SC SCH ×2 (10:12→21:13)
[2021-12-20] MEDS: SODIUM ZIRCONIUM CYCL 10 GM PAK PO SCH ×3 (10:14→21:12)
[2021-12-20 11:42] LABS: Hepatitis A Ab IgM Negative; Hepatitis B Core IgM Negative
[2021-12-20 11:43] LABS: Hepatitis C Antibody Negative (Negative)
[2021-12-20] MEDS: MORPHINE SULFATE INJECTION 2 MG/ML SYRG IV PRN ×2 (12:12→21:03)
[2021-12-20] MEDS ORDERED: LIDOCAINE 2%HCL (LOCAL ANESTH.) INJ 20ML MDV ONE (14:23)
[2021-12-20] MEDS ORDERED: fentaNYL CITRATE 0 ML ONE (14:26)
[2021-12-20] MEDS ORDERED: MIDAZOLAM HCL 2MG/2ML 2ml VIAL (1mg/ml) ONE (14:26)
[2021-12-20] MEDS ORDERED: HEPARIN SODIUM (PORCINE) 5000 UNITS/ML 1ML VIAL ONE (14:26)
[2021-12-20] MEDS ORDERED: HYDROmorphone HCL 2 MG/ML VL IV PRN (15:45)
[2021-12-20] MEDS: CALCIUM ACETATE 667 MG CAP PO SCH (16:17)
[2021-12-20 20:42] LABS: BUN/Creatinine Ratio 8.4; Potassium 5.4 mmol/L (3.5-5.1)
[2021-12-20] MEDS ORDERED: EPOETIN ALFA-EPBX 10,000 UNIT/1ML VIAL SC ONE (21:00)
[2021-12-21] MEDS: InsuLIN REG 1unit/0.01ml Soln (100units/ml) SC SCH ×6 (00:31→21:41)
[2021-12-21 01:19] LABS: BUN/Creatinine Ratio 8.9; Calcium 8.1 mg/dL (8.5-10.1)
[2021-12-21 01:36] LABS: Potassium 5.6 mmol/L (3.5-5.1)
[2021-12-21] MEDS: ACCU-CHEK COMFORT CURVE STRIP VI SCH ×6 (04:00→20:00)
[2021-12-21] MEDS: MORPHINE SULFATE INJECTION 2 MG/ML SYRG IV PRN ×2 (04:44→15:13)
[2021-12-21] MEDS: SODIUM ZIRCONIUM CYCL 10 GM PAK PO SCH ×3 (06:47→21:50)
[2021-12-21] MEDS: SODIUM CHLOR 0.9% PF (SALINE LOCK) 10ML VIAL/SYR IV SCH ×3 (06:47→21:50)
[2021-12-21] MEDS: INSULIN LANTUS (GLARGINE) 1 /0.01ml (100units/ml) SC SCH ×2 (07:01→21:50)
[2021-12-21 07:17] LABS: Potassium 5.2 mmol/L (3.5-5.1)
[2021-12-21 07:19] LABS: BUN/Creatinine Ratio 8.8
[2021-12-21 07:34] LABS: Calcium 7.8 mg/dL (8.5-10.1)
[2021-12-21] MEDS: CALCIUM ACETATE 667 MG CAP PO SCH ×3 (08:00→18:45)
[2021-12-21 09:13] VITALS: BP 139/70
[2021-12-21] MEDS: HEPARIN SODIUM (PORCINE) 5000 UNITS/ML 1ML VIAL SC SCH ×2 (09:39→21:49)
[2021-12-21 13:00] VITALS: BP 18/71
[2021-12-21 17:00] VITALS: BP 167/92
[2021-12-21] MEDS ORDERED: HEPARIN SODIUM (PORCINE) 5000 UNITS/ML 1ML VIAL IV ONE (17:15)
[2021-12-21] MEDS ORDERED: CATHFLO ACTIVASE (ALTEPLASE) 2 MG VIAL IV ONE (17:15)
[2021-12-21] MEDS: HYDROcodone-ACET 5/325MG TAB PO PRN (19:44)
[2021-12-21 20:00] VITALS: BP 146/81
[2021-12-21 22:00] VITALS: BP 146/81
[2021-12-22] MEDS: MORPHINE SULFATE INJECTION 2 MG/ML SYRG IV PRN ×3 (00:03→17:15)
[2021-12-22] MEDS: ACCU-CHEK COMFORT CURVE STRIP VI SCH ×7 (00:14→22:10)
[2021-12-22] MEDS: InsuLIN REG 1unit/0.01ml Soln (100units/ml) SC SCH ×6 (00:14→22:10)
[2021-12-22] MEDS: HYDROcodone-ACET 5/325MG TAB PO PRN (04:38)
[2021-12-22 05:00] VITALS: BP 147/74
[2021-12-22] MEDS: SODIUM ZIRCONIUM CYCL 10 GM PAK PO SCH ×3 (06:37→16:12)
[2021-12-22] MEDS: SODIUM CHLOR 0.9% PF (SALINE LOCK) 10ML VIAL/SYR IV SCH ×3 (06:37→22:04)
[2021-12-22] MEDS: INSULIN LANTUS (GLARGINE) 1 /0.01ml (100units/ml) SC SCH ×2 (06:38→22:11)
[2021-12-22] MEDS: CALCIUM ACETATE 667 MG CAP PO SCH ×3 (08:30→18:07)
[2021-12-22 09:00] VITALS: BP 141/66
[2021-12-22 09:44] LABS: Basophils # (auto) 0.1 10 ^3/uL (0-0.2); Basophils % (auto) 0.6 % (0.0-2.0); Eosinophils # (auto) 0.2 10 ^3/uL (0-0.8); Eosinophils % (auto) 1.5 % (0.0-7.0)
[2021-12-22 09:46] LABS: Hematocrit 21.1 % (36.0-46.0); Lymphocytes # (auto) 1.2 10 ^3/uL (0.4-5.4); Lymphocytes % (auto) 10.3 % (10.0-50.0); Mean Corpuscular Hemoglobin 27.1 pg (28.0-32.0); Mean Corpuscular Hgb Conc. 32.6 g/dL (32.0-36.0); Mean Corpuscular Volume 83.1 fL (80.0-100.0); Monocytes # (auto) 0.9 10 ^3/uL (0-1.3); Monocytes % (auto) 7.8 % (0.0-12.0); Neutrophils # (auto) 8.9 10 ^3/uL (1.6-8.6); Neutrophils % (auto) 79.8 % (37.0-80.0); Red Blood Cells 2.53 10^6/uL (4.0-5.20); Red Cell Distribution Width 15.4 % (11.8-14.3); White Blood Cell 11.2 10^3/uL (4.4-10.8)
[2021-12-22] MEDS: HEPARIN SODIUM (PORCINE) 5000 UNITS/ML 1ML VIAL SC SCH ×2 (10:00→22:07)
[2021-12-22 10:02] LABS: BUN/Creatinine Ratio 8.1; Calcium 7.9 mg/dL (8.5-10.1); Potassium 4.2 mmol/L (3.5-5.1)
[2021-12-22] MEDS ORDERED: EPOETIN ALFA-EPBX 10,000 UNIT/1ML VIAL SC SCH ×2 (10:15→21:00)
[2021-12-22] MEDS: Nepro With Carbsteady ButterPecan 8oz Carton PO SCH ×2 (12:00→18:07)
[2021-12-22 12:51] LABS: INR 1.02 (0.9-1.15); Partial Thromboplastin Time 32.2 sec (23.6-33.0)
[2021-12-22 13:00] VITALS: BP 137/64
[2021-12-22 16:30] VITALS: BP 133/69
[2021-12-22 20:00] VITALS: BP 149/78
[2021-12-22 21:54] VITALS: BP 149/78
[2021-12-23] MEDS: MORPHINE SULFATE INJECTION 2 MG/ML SYRG IV PRN ×4 (00:25→18:39)
[2021-12-23] MEDS ORDERED: ALBUTEROL SULF 2.5 MG/0.5ML(0.5%) NEB SOLN ONE (01:14)
[2021-12-23] MEDS ORDERED: ALBUTEROL SULF 2.5 MG/0.5ML(0.5%) NEB SOLN NEB PRN (01:15)
[2021-12-23 04:56] VITALS: BP 149/70
[2021-12-23] MEDS: SODIUM ZIRCONIUM CYCL 10 GM PAK PO SCH ×3 (06:00→21:57)
[2021-12-23] MEDS: SODIUM CHLOR 0.9% PF (SALINE LOCK) 10ML VIAL/SYR IV SCH ×3 (06:01→21:56)
[2021-12-23 06:02] LABS: White Blood Cell 11.3 10^3/uL (4.4-10.8)
[2021-12-23 06:05] LABS: Hematocrit 20.8 % (36.0-46.0); Mean Corpuscular Hemoglobin 27.8 pg (28.0-32.0); Mean Corpuscular Hgb Conc. 33.8 g/dL (32.0-36.0); Mean Corpuscular Volume 82.4 fL (80.0-100.0); Red Blood Cells 2.53 10^6/uL (4.0-5.20); Red Cell Distribution Width 15.5 % (11.8-14.3)
[2021-12-23] MEDS: InsuLIN REG 1unit/0.01ml Soln (100units/ml) SC SCH ×4 (06:06→21:58)
[2021-12-23] MEDS: ACCU-CHEK COMFORT CURVE STRIP VI SCH ×4 (06:07→21:58)
[2021-12-23 06:14] LABS: Basophils % (manual) 0 (0.0-2.0); Blast Cells 0; Promyelocytes % 0; Reactive Lymphocytes 0
[2021-12-23] MEDS: INSULIN LANTUS (GLARGINE) 1 /0.01ml (100units/ml) SC SCH ×2 (06:14→21:59)
[2021-12-23 06:20] LABS: Potassium 4.3 mmol/L (3.5-5.1)
[2021-12-23 06:27] LABS: BUN/Creatinine Ratio 7.9
[2021-12-23 06:43] LABS: Eosinophils % (manual) 2 (0-7); Lymphocytes % (manual) 7 (10.0-50.0); Monocytes % (manual) 5 (0-12)
[2021-12-23 06:44] LABS: Band Neutrophils % (manual) 4; Metamyelocytes % 2; Myelocytes % 6
[2021-12-23 08:00] VITALS: BP 149/78
[2021-12-23] MEDS: Nepro With Carbsteady ButterPecan 8oz Carton PO SCH ×3 (08:00→17:27)
[2021-12-23] MEDS: CALCIUM ACETATE 667 MG CAP PO SCH ×3 (08:40→17:27)
[2021-12-23] MEDS: HEPARIN SODIUM (PORCINE) 5000 UNITS/ML 1ML VIAL SC SCH ×2 (08:51→21:57)
[2021-12-23 09:10] VITALS: BP 147/61
[2021-12-23 12:32] LABS: Basophils # (auto) 0.1 10 ^3/uL (0-0.2); Eosinophils # (auto) 0.1 10 ^3/uL (0-0.8); Lymphocytes # (auto) 1.2 10 ^3/uL (0.4-5.4); Monocytes # (auto) 0.8 10 ^3/uL (0-1.3)
[2021-12-23 12:34] LABS: Basophils % (auto) 0.5 % (0.0-2.0); Eosinophils % (auto) 1.2 % (0.0-7.0); Hematocrit 21.2 % (36.0-46.0); Mean Corpuscular Hgb Conc. 32.7 g/dL (32.0-36.0); Mean Corpuscular Volume 82.3 fL (80.0-100.0); Monocytes % (auto) 7.1 % (0.0-12.0); Neutrophils # (auto) 9.6 10 ^3/uL (1.6-8.6); Neutrophils % (auto) 81.2 % (37.0-80.0); Nucleated Red Blood Cells % 0.1 %; Red Blood Cells 2.57 10^6/uL (4.0-5.20); Red Cell Distribution Width 15.7 % (11.8-14.3); White Blood Cell 11.8 10^3/uL (4.4-10.8)
[2021-12-23 13:00] VITALS: BP 147/80
[2021-12-23] MEDS: ALBUTEROL SULF 2.5 MG/0.5ML(0.5%) NEB SOLN NEB SCH ×2 (14:36→21:39)
[2021-12-23] MEDS: diphenhdrAMINE HCL 12.5 MG/5 ML UD PO PRN (14:42)
[2021-12-23 17:00] VITALS: BP 161/87
[2021-12-23] MEDS: DOCUSATE SOD 100 MG CAP PO PRN (18:38)
[2021-12-23 22:00] VITALS: BP 146/78
[2021-12-23] MEDS: HYDROcodone-ACET 5/325MG TAB PO PRN (23:00)
[2021-12-24] MEDS: MORPHINE SULFATE INJECTION 2 MG/ML SYRG IV PRN ×4 (01:03→22:15)
[2021-12-24] MEDS: ALBUTEROL SULF 2.5 MG/0.5ML(0.5%) NEB SOLN NEB SCH ×6 (01:08→22:01)
[2021-12-24 05:00] VITALS: BP 143/78
[2021-12-24] MEDS: SODIUM ZIRCONIUM CYCL 10 GM PAK PO SCH ×3 (06:00→22:00)
[2021-12-24] MEDS: ACCU-CHEK COMFORT CURVE STRIP VI SCH ×4 (06:14→22:08)
[2021-12-24] MEDS: InsuLIN REG 1unit/0.01ml Soln (100units/ml) SC SCH ×4 (06:14→22:00)
[2021-12-24] MEDS: INSULIN LANTUS (GLARGINE) 1 /0.01ml (100units/ml) SC SCH ×2 (06:14→22:09)
[2021-12-24] MEDS: SODIUM CHLOR 0.9% PF (SALINE LOCK) 10ML VIAL/SYR IV SCH ×3 (06:15→22:07)
[2021-12-24 06:25] LABS: Albumin 1.9 g/dL (3.4-5.0); BUN/Creatinine Ratio 7.9; Calcium 8.2 mg/dL (8.5-10.1); Potassium 4.5 mmol/L (3.5-5.1)
[2021-12-24 06:28] LABS: Bilirubin, Total 0.3 mg/dL (0.2-1.0); Mean Corpuscular Hgb Conc. 32.5 g/dL (32.0-36.0); Red Blood Cells 2.41 10^6/uL (4.0-5.20); Red Cell Distribution Width 16.1 % (11.8-14.3); Total Protein 5.9 g/dL (6.4-8.2)
[2021-12-24 06:33] LABS: Hemoglobin 6.5 g/dL (12.2-16.2)
[2021-12-24 06:34] LABS: Basophils % (manual) 0 (0.0-2.0); Blast Cells 0; Metamyelocytes % 0; Promyelocytes % 0; Reactive Lymphocytes 0
[2021-12-24 07:09] LABS: Band Neutrophils % (manual) 9; Eosinophils % (manual) 1 (0-7); Lymphocytes % (manual) 15 (10.0-50.0); Monocytes % (manual) 12 (0-12); Myelocytes % 6
[2021-12-24] MEDS: CALCIUM ACETATE 667 MG CAP PO SCH ×3 (08:11→17:38)
[2021-12-24] MEDS: HEPARIN SODIUM (PORCINE) 5000 UNITS/ML 1ML VIAL SC SCH ×2 (08:15→22:14)
[2021-12-24] MEDS: Nepro With Carbsteady ButterPecan 8oz Carton PO SCH ×3 (08:20→17:38)
[2021-12-24] MEDS: DOCUSATE SOD 100 MG CAP PO PRN (08:24)
[2021-12-24 08:30] VITALS: BP 158/80
[2021-12-24] MEDS: diphenhdrAMINE HCL 12.5 MG/5 ML UD PO PRN (14:55)
[2021-12-24] MEDS: HYDROcodone-ACET 5/325MG TAB PO PRN (20:25)
[2021-12-24 22:00] VITALS: BP 158/80
[2021-12-25] MEDS: MORPHINE SULFATE INJECTION 2 MG/ML SYRG IV PRN ×4 (04:25→23:15)
[2021-12-25 05:00] VITALS: BP 156/82
[2021-12-25 05:27] LABS: Hematocrit 20.9 % (36.0-46.0)
[2021-12-25 05:37] LABS: BUN/Creatinine Ratio 8.2; Calcium 8.1 mg/dL (8.5-10.1); Potassium 5.1 mmol/L (3.5-5.1)
[2021-12-25] MEDS: ALBUTEROL SULF 2.5 MG/0.5ML(0.5%) NEB SOLN NEB SCH ×5 (05:57→21:54)
[2021-12-25] MEDS: SODIUM ZIRCONIUM CYCL 10 GM PAK PO SCH ×4 (06:00→22:10)
[2021-12-25] MEDS: SODIUM CHLOR 0.9% PF (SALINE LOCK) 10ML VIAL/SYR IV SCH ×3 (06:25→22:10)
[2021-12-25] MEDS: ACCU-CHEK COMFORT CURVE STRIP VI SCH ×4 (06:26→22:11)
[2021-12-25] MEDS: InsuLIN REG 1unit/0.01ml Soln (100units/ml) SC SCH ×4 (06:26→22:00)
[2021-12-25] MEDS: INSULIN LANTUS (GLARGINE) 1 /0.01ml (100units/ml) SC SCH ×2 (06:29→22:11)
[2021-12-25 06:34] LABS: Hemoglobin 6.8 g/dL (12.2-16.2)
[2021-12-25] MEDS ORDERED: SODIUM CHL 0.9% 1000 ML BAG XX ONE (07:00)
[2021-12-25] MEDS: CALCIUM ACETATE 667 MG CAP PO SCH ×3 (08:10→17:09)
[2021-12-25] MEDS: Nepro With Carbsteady ButterPecan 8oz Carton PO SCH ×3 (08:15→17:10)
[2021-12-25 09:00] VITALS: BP_SYST 121; BP_SYST 152; BP_DIAS 61; BP_DIAS 68
[2021-12-25] MEDS: HEPARIN SODIUM (PORCINE) 5000 UNITS/ML 1ML VIAL SC SCH ×2 (10:00→22:11)
[2021-12-25] MEDS: DOCUSATE SOD 100 MG CAP PO PRN ×2 (10:50→16:59)
[2021-12-25] MEDS: diphenhdrAMINE HCL 12.5 MG/5 ML UD PO PRN (10:50)
[2021-12-25 17:23] VITALS: BP 143/53
[2021-12-25] MEDS ORDERED: EPOETIN ALFA-EPBX 10,000 UNIT/1ML VIAL SC ONE (21:00)
[2021-12-25] MEDS ORDERED: EPOETIN ALFA-EPBX 10,000 UNIT/1ML VIAL SC SCH (21:00)
[2021-12-26] MEDS: HYDROcodone-ACET 5/325MG TAB PO PRN ×3 (02:46→22:02)
[2021-12-26 05:11] VITALS: BP 151/84
[2021-12-26] MEDS: SODIUM CHLOR 0.9% PF (SALINE LOCK) 10ML VIAL/SYR IV SCH ×3 (05:28→22:00)
[2021-12-26] MEDS: MORPHINE SULFATE INJECTION 2 MG/ML SYRG IV PRN ×2 (05:29→13:14)
[2021-12-26] MEDS: SODIUM ZIRCONIUM CYCL 10 GM PAK PO SCH ×3 (06:00→22:00)
[2021-12-26] MEDS: INSULIN LANTUS (GLARGINE) 1 /0.01ml (100units/ml) SC SCH ×2 (06:30→22:00)
[2021-12-26] MEDS: ACCU-CHEK COMFORT CURVE STRIP VI SCH ×4 (06:30→22:00)
[2021-12-26] MEDS: InsuLIN REG 1unit/0.01ml Soln (100units/ml) SC SCH ×4 (06:30→22:00)
[2021-12-26] MEDS: ALBUTEROL SULF 2.5 MG/0.5ML(0.5%) NEB SOLN NEB SCH ×5 (07:00→23:26)
[2021-12-26 07:29] LABS: Hematocrit 20.5 % (36.0-46.0)
[2021-12-26 07:42] LABS: Calcium 7.7 mg/dL (8.5-10.1); Potassium 4.2 mmol/L (3.5-5.1)
[2021-12-26 07:45] LABS: Bilirubin, Total 0.3 mg/dL (0.2-1.0); Total Protein 6.4 g/dL (6.4-8.2)
[2021-12-26 07:55] LABS: Hemoglobin 6.6 g/dL (12.2-16.2)
[2021-12-26] MEDS: CALCIUM ACETATE 667 MG CAP PO SCH ×3 (08:00→17:51)
[2021-12-26] MEDS: Nepro With Carbsteady ButterPecan 8oz Carton PO SCH ×3 (08:00→17:51)
[2021-12-26] MEDS: HEPARIN SODIUM (PORCINE) 5000 UNITS/ML 1ML VIAL SC SCH ×2 (10:39→22:00)
[2021-12-26 16:24] VITALS: BP 157/85
[2021-12-26 22:00] VITALS: BP 155/82
[2021-12-27] MEDS: HYDROcodone-ACET 5/325MG TAB PO PRN ×3 (04:38→20:35)
[2021-12-27 05:00] VITALS: BP 156/98
[2021-12-27] MEDS: SODIUM CHLOR 0.9% PF (SALINE LOCK) 10ML VIAL/SYR IV SCH ×3 (06:00→22:20)
[2021-12-27] MEDS: SODIUM ZIRCONIUM CYCL 10 GM PAK PO SCH ×3 (06:00→22:20)
[2021-12-27] MEDS: ALBUTEROL SULF 2.5 MG/0.5ML(0.5%) NEB SOLN NEB SCH ×6 (06:00→21:54)
[2021-12-27] MEDS: ACCU-CHEK COMFORT CURVE STRIP VI SCH ×4 (06:54→22:20)
[2021-12-27] MEDS: INSULIN LANTUS (GLARGINE) 1 /0.01ml (100units/ml) SC SCH ×2 (06:55→22:00)
[2021-12-27] MEDS: InsuLIN REG 1unit/0.01ml Soln (100units/ml) SC SCH ×4 (06:56→22:00)
[2021-12-27] MEDS ORDERED: SODIUM CHL 0.9% 1000 ML BAG XX ONE (07:00)
[2021-12-27 07:30] LABS: Hematocrit 21.3 % (36.0-46.0)
[2021-12-27 07:33] LABS: Hemoglobin 6.9 g/dL (12.2-16.2)
[2021-12-27] MEDS: CALCIUM ACETATE 667 MG CAP PO SCH ×3 (08:00→18:12)
[2021-12-27] MEDS: Nepro With Carbsteady ButterPecan 8oz Carton PO SCH ×3 (08:46→18:12)
[2021-12-27 09:00] VITALS: BP 150/97
[2021-12-27 13:00] VITALS: BP 169/75
[2021-12-27 17:00] VITALS: BP 147/70
[2021-12-27 22:00] VITALS: BP 156/78
[2021-12-27] MEDS: HEPARIN SODIUM (PORCINE) 5000 UNITS/ML 1ML VIAL SC SCH ×2 (22:19→23:06)
[2021-12-28 05:00] VITALS: BP 139/84
[2021-12-28] MEDS: HYDROcodone-ACET 5/325MG TAB PO PRN ×2 (05:00→10:39)
[2021-12-28] MEDS: SODIUM ZIRCONIUM CYCL 10 GM PAK PO SCH ×3 (05:38→22:04)
[2021-12-28] MEDS: SODIUM CHLOR 0.9% PF (SALINE LOCK) 10ML VIAL/SYR IV SCH ×3 (05:38→22:04)
[2021-12-28 05:50] LABS: Calcium 8.2 mg/dL (8.5-10.1); Potassium 4.5 mmol/L (3.5-5.1)
[2021-12-28] MEDS: InsuLIN REG 1unit/0.01ml Soln (100units/ml) SC SCH ×4 (06:17→22:00)
[2021-12-28] MEDS: ACCU-CHEK COMFORT CURVE STRIP VI SCH ×4 (06:17→22:05)
[2021-12-28] MEDS: INSULIN LANTUS (GLARGINE) 1 /0.01ml (100units/ml) SC SCH ×2 (06:18→22:12)
[2021-12-28] MEDS: ALBUTEROL SULF 2.5 MG/0.5ML(0.5%) NEB SOLN NEB SCH ×5 (06:27→21:55)
[2021-12-28] MEDS: Nepro With Carbsteady ButterPecan 8oz Carton PO SCH ×3 (08:00→17:51)
[2021-12-28] MEDS: CALCIUM ACETATE 667 MG CAP PO SCH ×3 (08:21→17:31)
[2021-12-28 08:40] VITALS: BP 153/85
[2021-12-28] MEDS: HEPARIN SODIUM (PORCINE) 5000 UNITS/ML 1ML VIAL SC SCH ×2 (10:29→22:11)
[2021-12-28] MEDS ORDERED: HYDROcodone-ACET 5/325MG TAB PO PRN (12:15)
[2021-12-28] MEDS ORDERED: LACTULOSE 20Gm/30ML SOLN PO PRN (12:15)
[2021-12-28] MEDS ORDERED: SENNA 8.6 MG TAB PO PRN (12:15)
[2021-12-28 13:00] VITALS: BP 164/80
[2021-12-28] MEDS: HYDROmorphone HCL 2 MG/ML VL IV PRN ×2 (14:47→22:34)
[2021-12-28 16:51] VITALS: BP 180/61
[2021-12-28 22:00] VITALS: BP 174/79
[2021-12-28] MEDS: SODIUM CHLORIDE 0.9% 1,000 ML IV SCH ×2 (22:33→23:33)
[2021-12-29] MEDS: SODIUM CHLORIDE 0.9% 1,000 ML IV SCH (01:15)
[2021-12-29] MEDS: HYDROmorphone HCL 2 MG/ML VL IV PRN ×5 (04:33→22:31)
[2021-12-29 05:00] VITALS: BP 177/77
[2021-12-29] MEDS: SODIUM ZIRCONIUM CYCL 10 GM PAK PO SCH ×4 (06:00→22:00)
[2021-12-29] MEDS: ALBUTEROL SULF 2.5 MG/0.5ML(0.5%) NEB SOLN NEB SCH ×4 (06:31→17:47)
[2021-12-29] MEDS: SODIUM CHLOR 0.9% PF (SALINE LOCK) 10ML VIAL/SYR IV SCH ×3 (06:33→22:20)
[2021-12-29] MEDS: ACCU-CHEK COMFORT CURVE STRIP VI SCH ×4 (06:44→22:29)
[2021-12-29] MEDS: InsuLIN REG 1unit/0.01ml Soln (100units/ml) SC SCH ×4 (06:44→22:00)
[2021-12-29] MEDS: INSULIN LANTUS (GLARGINE) 1 /0.01ml (100units/ml) SC SCH ×2 (06:50→22:29)
[2021-12-29] MEDS: Nepro With Carbsteady ButterPecan 8oz Carton PO SCH ×3 (08:00→17:33)
[2021-12-29 09:00] VITALS: BP 168/68
[2021-12-29] MEDS: CALCIUM ACETATE 667 MG CAP PO SCH ×3 (09:23→17:32)
[2021-12-29] MEDS: HEPARIN SODIUM (PORCINE) 5000 UNITS/ML 1ML VIAL SC SCH ×2 (09:28→22:27)
[2021-12-29] MEDS: EPOETIN ALFA-EPBX 10,000 UNIT/1ML VIAL SC SCH ×2 (09:30→10:00)
[2021-12-29 13:00] VITALS: BP 158/80
[2021-12-29] MEDS: SODIUM FERR GLUC 62.5MG/5ML 125 MG in SODIUM CHL 0.9% 100 ML IV SCH (14:16)
[2021-12-29] MEDS: METOPROLOL TARTRATE 25 MG TAB PO SCH (17:22)
[2021-12-29 17:28] VITALS: BP 181/79
[2021-12-29 22:00] VITALS: BP 159/83
[2021-12-30] MEDS: ALBUTEROL SULF 2.5 MG/0.5ML(0.5%) NEB SOLN NEB SCH ×5 (00:30→18:00)
[2021-12-30] MEDS: HYDROmorphone HCL 2 MG/ML VL IV PRN ×6 (04:30→22:27)
[2021-12-30 05:00] VITALS: BP 148/70
[2021-12-30 05:55] LABS: Calcium 8.6 mg/dL (8.5-10.1); Potassium 4.6 mmol/L (3.5-5.1)
[2021-12-30 05:59] LABS: BUN/Creatinine Ratio 7.1
[2021-12-30] MEDS: SODIUM ZIRCONIUM CYCL 10 GM PAK PO SCH ×3 (06:00→22:00)
[2021-12-30] MEDS: InsuLIN REG 1unit/0.01ml Soln (100units/ml) SC SCH ×4 (06:45→22:35)
[2021-12-30] MEDS: SODIUM CHLOR 0.9% PF (SALINE LOCK) 10ML VIAL/SYR IV SCH ×3 (06:45→22:28)
[2021-12-30] MEDS: ACCU-CHEK COMFORT CURVE STRIP VI SCH ×4 (06:46→22:00)
[2021-12-30] MEDS: INSULIN LANTUS (GLARGINE) 1 /0.01ml (100units/ml) SC SCH ×2 (06:52→22:35)
[2021-12-30] MEDS: Nepro With Carbsteady ButterPecan 8oz Carton PO SCH ×3 (08:00→17:08)
[2021-12-30 09:00] VITALS: BP 162/76
[2021-12-30] MEDS: CALCIUM ACETATE 667 MG CAP PO SCH ×3 (09:00→17:03)
[2021-12-30] MEDS: FLUoxetine HCL 20 MG CAP PO SCH (09:06)
[2021-12-30] MEDS: METOPROLOL TARTRATE 25 MG TAB PO SCH ×2 (09:18→22:26)
[2021-12-30] MEDS: HEPARIN SODIUM (PORCINE) 5000 UNITS/ML 1ML VIAL SC SCH ×2 (09:23→22:32)
[2021-12-30 13:00] VITALS: BP 146/85
[2021-12-30] MEDS: SODIUM FERR GLUC 62.5MG/5ML 125 MG in SODIUM CHL 0.9% 100 ML IV SCH (14:10)
[2021-12-30 16:30] VITALS: BP 155/78
[2021-12-30 22:00] VITALS: BP 160/90
[2021-12-30] MEDS ORDERED: ALBUTEROL SULF 2.5 MG/0.5ML(0.5%) NEB SOLN NEB SCH (22:00)
[2021-12-31] MEDS: HYDROmorphone HCL 2 MG/ML VL IV PRN ×5 (04:05→22:58)
[2021-12-31 05:00] VITALS: BP 160/83
[2021-12-31] MEDS: SODIUM ZIRCONIUM CYCL 10 GM PAK PO SCH ×3 (06:00→22:00)
[2021-12-31] MEDS: SODIUM CHLOR 0.9% PF (SALINE LOCK) 10ML VIAL/SYR IV SCH ×3 (06:35→22:54)
[2021-12-31] MEDS: InsuLIN REG 1unit/0.01ml Soln (100units/ml) SC SCH ×4 (06:40→22:00)
[2021-12-31] MEDS: ACCU-CHEK COMFORT CURVE STRIP VI SCH ×4 (06:40→22:14)
[2021-12-31] MEDS: INSULIN LANTUS (GLARGINE) 1 /0.01ml (100units/ml) SC SCH ×2 (06:44→22:55)
[2021-12-31] MEDS: Nepro With Carbsteady ButterPecan 8oz Carton PO SCH ×3 (08:00→17:29)
[2021-12-31] MEDS: CALCIUM ACETATE 667 MG CAP PO SCH ×3 (08:32→18:04)
[2021-12-31 09:00] VITALS: BP 165/84
[2021-12-31] MEDS: FLUoxetine HCL 20 MG CAP PO SCH (09:53)
[2021-12-31] MEDS: METOPROLOL TARTRATE 25 MG TAB PO SCH ×2 (12:06→22:54)
[2021-12-31 13:00] VITALS: BP 167/61
[2021-12-31] MEDS: SODIUM FERR GLUC 62.5MG/5ML 125 MG in SODIUM CHL 0.9% 100 ML IV SCH (14:30)
[2021-12-31 17:00] VITALS: BP 149/72
[2021-12-31] MEDS ORDERED: ALBUTEROL SULF 2.5 MG/0.5ML(0.5%) NEB SOLN NEB PRN (22:00)
[2021-12-31] MEDS: ZOLPIDEM TARTRATE 5 MG TAB PO PRN (22:58)
[2022-01-01] MEDS: HYDROmorphone HCL 2 MG/ML VL IV PRN ×3 (04:37→16:31)
[2022-01-01 05:00] VITALS: BP 151/80
[2022-01-01] MEDS: SODIUM ZIRCONIUM CYCL 10 GM PAK PO SCH ×3 (06:00→21:05)
[2022-01-01] MEDS: SODIUM CHLOR 0.9% PF (SALINE LOCK) 10ML VIAL/SYR IV SCH ×3 (06:56→22:49)
[2022-01-01] MEDS: InsuLIN REG 1unit/0.01ml Soln (100units/ml) SC SCH ×4 (07:00→22:00)
[2022-01-01] MEDS: ACCU-CHEK COMFORT CURVE STRIP VI SCH ×4 (07:00→22:00)
[2022-01-01] MEDS ORDERED: SODIUM CHL 0.9% 1000 ML BAG XX ONE (07:00)
[2022-01-01] MEDS: INSULIN LANTUS (GLARGINE) 1 /0.01ml (100units/ml) SC SCH ×2 (07:08→22:53)
[2022-01-01 07:31] LABS: Potassium 4.6 mmol/L (3.5-5.1)
[2022-01-01 07:40] LABS: BUN/Creatinine Ratio 7.4; Calcium 8.4 mg/dL (8.5-10.1)
[2022-01-01 07:50] LABS: INR 1.06 (0.9-1.15)
[2022-01-01 07:53] LABS: Basophils # (auto) 0.1 10 ^3/uL (0-0.2); Eosinophils # (auto) 0.1 10 ^3/uL (0-0.8); Hemoglobin 7.1 g/dL (12.2-16.2); Mean Corpuscular Volume 84.3 fL (80.0-100.0); Monocytes # (auto) 1.2 10 ^3/uL (0-1.3); Neutrophils # (auto) 11.2 10 ^3/uL (1.6-8.6)
[2022-01-01 07:55] LABS: Basophils % (auto) 0.7 % (0.0-2.0); Eosinophils % (auto) 0.9 % (0.0-7.0); Hematocrit 22.7 % (36.0-46.0); Lymphocytes # (auto) 0.9 10 ^3/uL (0.4-5.4); Lymphocytes % (auto) 6.9 % (10.0-50.0); Mean Corpuscular Hemoglobin 26.3 pg (28.0-32.0); Mean Corpuscular Hgb Conc. 31.2 g/dL (32.0-36.0); Neutrophils % (auto) 82.5 % (37.0-80.0); Red Blood Cells 2.69 10^6/uL (4.0-5.20); Red Cell Distribution Width 17.2 % (11.8-14.3); White Blood Cell 13.5 10^3/uL (4.4-10.8)
[2022-01-01] MEDS: Nepro With Carbsteady ButterPecan 8oz Carton PO SCH ×3 (08:00→18:33)
[2022-01-01] MEDS: CALCIUM ACETATE 667 MG CAP PO SCH ×3 (08:33→18:33)
[2022-01-01 09:00] VITALS: BP 161/71
[2022-01-01] MEDS: FLUoxetine HCL 20 MG CAP PO SCH (10:18)
[2022-01-01] MEDS: DOCUSATE SOD 100 MG CAP PO PRN (10:18)
[2022-01-01] MEDS: ERGOCALCIFEROL 50,000 UNIT(1.25MG) CAP PO SCH (12:40)
[2022-01-01 13:00] VITALS: BP 159/64
[2022-01-01] MEDS: SODIUM FERR GLUC 62.5MG/5ML 125 MG in SODIUM CHL 0.9% 100 ML IV SCH (15:04)
[2022-01-01] MEDS: METOPROLOL TARTRATE 25 MG TAB PO SCH ×2 (15:04→22:50)
[2022-01-01] MEDS ORDERED: EPOETIN ALFA-EPBX 10,000 UNIT/1ML VIAL SC ONE (21:00)
[2022-01-01 22:00] VITALS: BP 143/68
[2022-01-01] MEDS: ZOLPIDEM TARTRATE 5 MG TAB PO PRN (23:47)
[2022-01-02 05:00] VITALS: BP 124/63
[2022-01-02] MEDS: SODIUM ZIRCONIUM CYCL 10 GM PAK PO SCH ×3 (05:56→20:28)
[2022-01-02] MEDS: SODIUM CHLOR 0.9% PF (SALINE LOCK) 10ML VIAL/SYR IV SCH ×3 (05:56→22:47)
[2022-01-02] MEDS: ACCU-CHEK COMFORT CURVE STRIP VI SCH ×4 (06:17→22:00)
[2022-01-02] MEDS: InsuLIN REG 1unit/0.01ml Soln (100units/ml) SC SCH (06:17)
[2022-01-02] MEDS: INSULIN LANTUS (GLARGINE) 1 /0.01ml (100units/ml) SC SCH ×2 (06:24→22:52)
[2022-01-02 09:00] VITALS: BP 122/53
[2022-01-02] MEDS: Nepro With Carbsteady ButterPecan 8oz Carton PO SCH ×3 (09:03→17:43)
[2022-01-02] MEDS: FLUoxetine HCL 20 MG CAP PO SCH (09:03)
[2022-01-02] MEDS: CALCIUM ACETATE 667 MG CAP PO SCH ×3 (09:03→17:48)
[2022-01-02] MEDS: OXYCODONE W/ ACETAMINOPHEN 5/325MG TABLET PO PRN ×4 (09:04→19:31)
[2022-01-02] MEDS: METOPROLOL TARTRATE 25 MG TAB PO SCH ×2 (11:38→22:48)
[2022-01-02 13:00] VITALS: BP 172/80
[2022-01-02 17:00] VITALS: BP 167/70
[2022-01-02 22:00] VITALS: BP 153/69
[2022-01-02] MEDS: ZOLPIDEM TARTRATE 5 MG TAB PO PRN (23:02)
[2022-01-03 05:00] VITALS: BP 122/92
[2022-01-03] MEDS: SODIUM CHLOR 0.9% PF (SALINE LOCK) 10ML VIAL/SYR IV SCH ×4 (05:37→21:55)
[2022-01-03] MEDS: SODIUM ZIRCONIUM CYCL 10 GM PAK PO SCH (05:37)
[2022-01-03] MEDS: OXYCODONE W/ ACETAMINOPHEN 5/325MG TABLET PO PRN ×4 (05:39→21:56)
[2022-01-03] MEDS: ACCU-CHEK COMFORT CURVE STRIP VI SCH ×4 (07:00→21:55)
[2022-01-03] MEDS: INSULIN LANTUS (GLARGINE) 1 /0.01ml (100units/ml) SC SCH ×2 (07:00→22:00)
[2022-01-03] MEDS ORDERED: SODIUM CHL 0.9% 1000 ML BAG XX ONE (07:00)
[2022-01-03 07:04] LABS: Potassium 4.5 mmol/L (3.5-5.1)
[2022-01-03 07:05] LABS: Hematocrit 22.7 % (36.0-46.0); Hemoglobin 7.2 g/dL (12.2-16.2)
[2022-01-03 07:11] LABS: Albumin 2.1 g/dL (3.4-5.0); Bilirubin, Total 0.4 mg/dL (0.2-1.0); Calcium 8.1 mg/dL (8.5-10.1); Phosphorus 5.6 mg/dL (2.5-4.90); Total Protein 6.2 g/dL (6.4-8.2)
[2022-01-03] MEDS: Nepro With Carbsteady ButterPecan 8oz Carton PO SCH ×3 (08:00→17:02)
[2022-01-03] MEDS: CALCIUM ACETATE 667 MG CAP PO SCH ×3 (08:00→17:53)
[2022-01-03 09:00] VITALS: BP_SYST 147; BP_SYST 156; BP_DIAS 68; BP_DIAS 71
[2022-01-03] MEDS: METOPROLOL TARTRATE 25 MG TAB PO SCH ×2 (10:00→22:10)
[2022-01-03 13:00] VITALS: BP 156/71
[2022-01-03] MEDS: FLUoxetine HCL 20 MG CAP PO SCH (14:48)
[2022-01-03 17:00] VITALS: BP 140/59
[2022-01-03] MEDS ORDERED: EPOETIN ALFA-EPBX 10,000 UNIT/1ML VIAL SC ONE (21:00)
[2022-01-03] MEDS: ZOLPIDEM TARTRATE 5 MG TAB PO PRN (21:56)
[2022-01-03 22:00] VITALS: BP 158/73
[2022-01-04 05:00] VITALS: BP 137/77
[2022-01-04] MEDS: OXYCODONE W/ ACETAMINOPHEN 5/325MG TABLET PO PRN ×5 (05:44→22:55)
[2022-01-04] MEDS: ACCU-CHEK COMFORT CURVE STRIP VI SCH ×4 (06:00→22:00)
[2022-01-04 06:05] LABS: Potassium 4.1 mmol/L (3.5-5.1)
[2022-01-04 06:10] LABS: BUN/Creatinine Ratio 6.3
[2022-01-04] MEDS: INSULIN LANTUS (GLARGINE) 1 /0.01ml (100units/ml) SC SCH ×2 (06:34→22:34)
[2022-01-04 09:00] VITALS: BP 161/77
[2022-01-04] MEDS: CALCIUM ACETATE 667 MG CAP PO SCH ×3 (09:38→17:52)
[2022-01-04] MEDS: Nepro With Carbsteady ButterPecan 8oz Carton PO SCH ×3 (09:38→17:51)
[2022-01-04] MEDS: FLUoxetine HCL 20 MG CAP PO SCH (09:40)
[2022-01-04] MEDS: METOPROLOL TARTRATE 25 MG TAB PO SCH ×2 (09:40→22:51)
[2022-01-04] MEDS ORDERED: SODIUM ZIRCONIUM CYCL 10 GM PAK PO SCH (10:00)
[2022-01-04] MEDS: SODIUM CHLOR 0.9% PF (SALINE LOCK) 10ML VIAL/SYR IV SCH ×2 (11:57→22:33)
[2022-01-04 13:00] VITALS: BP 156/79
[2022-01-04 17:00] VITALS: BP 157/81
[2022-01-04 22:00] VITALS: BP 157/100
[2022-01-04] MEDS: ZOLPIDEM TARTRATE 5 MG TAB PO PRN (22:37)
[2022-01-05 05:00] VITALS: BP 168/99
[2022-01-05] MEDS: SODIUM CHLOR 0.9% PF (SALINE LOCK) 10ML VIAL/SYR IV SCH ×3 (05:31→22:42)
[2022-01-05] MEDS: OXYCODONE W/ ACETAMINOPHEN 5/325MG TABLET PO PRN ×3 (05:32→20:26)
[2022-01-05] MEDS: ACCU-CHEK COMFORT CURVE STRIP VI SCH ×4 (07:10→22:00)
[2022-01-05] MEDS: INSULIN LANTUS (GLARGINE) 1 /0.01ml (100units/ml) SC SCH ×2 (07:12→23:00)
[2022-01-05] MEDS: Nepro With Carbsteady ButterPecan 8oz Carton PO SCH ×3 (08:00→17:35)
[2022-01-05 09:00] VITALS: BP 138/75
[2022-01-05] MEDS: CALCIUM ACETATE 667 MG CAP PO SCH ×3 (09:17→18:00)
[2022-01-05] MEDS: FLUoxetine HCL 20 MG CAP PO SCH (09:18)
[2022-01-05] MEDS: METOPROLOL TARTRATE 25 MG TAB PO SCH ×2 (09:18→22:45)
[2022-01-05 13:00] VITALS: BP 159/74
[2022-01-05 17:00] VITALS: BP 171/99
[2022-01-05] MEDS ORDERED: hydrALAZINE HCL 25 MG TAB PO PRN (17:15)
[2022-01-05] MEDS: NIFEdipine ER 30 MG TAB PO SCH (17:36)
[2022-01-05 22:00] VITALS: BP 133/68
[2022-01-05] MEDS: oxyCODONE HCL 5MG TAB PO SCH (22:43)
[2022-01-06] MEDS: SOD CHL 0.45% 1,000 ML IV SCH ×4 (02:30→23:48)
[2022-01-06] MEDS: OXYCODONE W/ ACETAMINOPHEN 5/325MG TABLET PO PRN ×3 (04:53→18:35)
[2022-01-06 05:00] VITALS: BP 114/54
[2022-01-06] MEDS: SODIUM CHLOR 0.9% PF (SALINE LOCK) 10ML VIAL/SYR IV SCH ×3 (06:23→21:33)
[2022-01-06] MEDS: oxyCODONE HCL 5MG TAB PO SCH ×3 (06:30→21:34)
[2022-01-06] MEDS: ACCU-CHEK COMFORT CURVE STRIP VI SCH ×4 (07:00→21:33)
[2022-01-06 07:06] LABS: Hematocrit 21.6 % (36.0-46.0); Mean Corpuscular Hemoglobin 27.4 pg (28.0-32.0); Mean Corpuscular Hgb Conc. 32.2 g/dL (32.0-36.0); Mean Corpuscular Volume 85.2 fL (80.0-100.0); Red Blood Cells 2.54 10^6/uL (4.0-5.20); Red Cell Distribution Width 18.5 % (11.8-14.3); White Blood Cell 28.5 10^3/uL (4.4-10.8)
[2022-01-06 07:20] LABS: Potassium 5.2 mmol/L (3.5-5.1)
[2022-01-06] MEDS: INSULIN LANTUS (GLARGINE) 1 /0.01ml (100units/ml) SC SCH ×2 (07:30→21:41)
[2022-01-06 07:39] LABS: Basophils % (manual) 0 (0.0-2.0); Blast Cells 0; Eosinophils % (manual) 0 (0-7); Metamyelocytes % 0; Myelocytes % 0; Promyelocytes % 0; Reactive Lymphocytes 0
[2022-01-06 07:41] LABS: BUN/Creatinine Ratio 7.2; Calcium 8.3 mg/dL (8.5-10.1)
[2022-01-06] MEDS: Nepro With Carbsteady ButterPecan 8oz Carton PO SCH ×3 (08:00→18:00)
[2022-01-06 09:00] VITALS: BP 97/50
[2022-01-06] MEDS: FLUoxetine HCL 20 MG CAP PO SCH (09:50)
[2022-01-06] MEDS: CALCIUM ACETATE 667 MG CAP PO SCH ×3 (09:50→18:36)
[2022-01-06] MEDS: METOPROLOL TARTRATE 25 MG TAB PO SCH ×2 (09:50→21:40)
[2022-01-06] MEDS: NIFEdipine ER 30 MG TAB PO SCH (09:50)
[2022-01-06 10:17] LABS: Band Neutrophils % (manual) 3; Lymphocytes % (manual) 2 (10.0-50.0); Monocytes % (manual) 2 (0-12)
[2022-01-06 13:00] VITALS: BP 121/71
[2022-01-06 17:00] VITALS: BP 121/59
[2022-01-06 22:00] VITALS: BP 137/71
[2022-01-07] MEDS: OXYCODONE W/ ACETAMINOPHEN 5/325MG TABLET PO PRN ×2 (02:34→16:51)
[2022-01-07 05:00] VITALS: BP 150/56
[2022-01-07] MEDS: SODIUM CHLOR 0.9% PF (SALINE LOCK) 10ML VIAL/SYR IV SCH ×3 (06:15→21:25)
[2022-01-07] MEDS: ACCU-CHEK COMFORT CURVE STRIP VI SCH ×4 (06:16→21:26)
[2022-01-07] MEDS: oxyCODONE HCL 5MG TAB PO SCH ×3 (06:16→21:25)
[2022-01-07] MEDS: INSULIN LANTUS (GLARGINE) 1 /0.01ml (100units/ml) SC SCH ×2 (06:25→21:26)
[2022-01-07] MEDS: Nepro With Carbsteady ButterPecan 8oz Carton PO SCH ×3 (08:00→18:34)
[2022-01-07] MEDS: CALCIUM ACETATE 667 MG CAP PO SCH ×3 (08:00→18:34)
[2022-01-07] MEDS: SOD CHL 0.45% 1,000 ML IV SCH (08:30)
[2022-01-07 09:00] VITALS: BP 185/79
[2022-01-07] MEDS ORDERED: SODIUM CHL 0.9% 1000 ML BAG XX ONE (09:45)
[2022-01-07] MEDS: METOPROLOL TARTRATE 25 MG TAB PO SCH ×2 (09:56→21:25)
[2022-01-07] MEDS: NIFEdipine ER 30 MG TAB PO SCH (09:57)
[2022-01-07] MEDS: FLUoxetine HCL 20 MG CAP PO SCH (09:58)
[2022-01-07 11:28] LABS: Basophils # (auto) 0 10 ^3/uL (0-0.2); Eosinophils # (auto) 0 10 ^3/uL (0-0.8); Eosinophils % (auto) 0.2 % (0.0-7.0); Lymphocytes # (auto) 0.3 10 ^3/uL (0.4-5.4); Nucleated Red Blood Cells % 0.1 %; Red Cell Distribution Width 18.3 % (11.8-14.3)
[2022-01-07 11:30] LABS: Hematocrit 29.1 % (36.0-46.0); Lymphocytes % (auto) 1.7 % (10.0-50.0); Mean Corpuscular Hgb Conc. 30.9 g/dL (32.0-36.0); Mean Corpuscular Volume 84.1 fL (80.0-100.0); Monocytes % (auto) 5.4 % (0.0-12.0); Neutrophils # (auto) 17.3 10 ^3/uL (1.6-8.6); Neutrophils % (auto) 92.7 % (37.0-80.0); Red Blood Cells 3.46 10^6/uL (4.0-5.20); White Blood Cell 18.7 10^3/uL (4.4-10.8)
[2022-01-07 13:00] VITALS: BP 131/69
[2022-01-07 17:00] VITALS: BP 129/52
[2022-01-07] MEDS ORDERED: EPOETIN ALFA-EPBX 10,000 UNIT/1ML VIAL SC ONE (21:00)
[2022-01-07 22:00] VITALS: BP 106/58
[2022-01-08] MEDS: OXYCODONE W/ ACETAMINOPHEN 5/325MG TABLET PO PRN ×2 (02:44→10:41)
[2022-01-08 05:00] VITALS: BP 119/58
[2022-01-08] MEDS: INSULIN LANTUS (GLARGINE) 1 /0.01ml (100units/ml) SC SCH ×2 (05:32→21:51)
[2022-01-08] MEDS: oxyCODONE HCL 5MG TAB PO SCH ×3 (05:32→21:49)
[2022-01-08] MEDS: ACCU-CHEK COMFORT CURVE STRIP VI SCH ×4 (05:32→22:00)
[2022-01-08] MEDS: SODIUM CHLOR 0.9% PF (SALINE LOCK) 10ML VIAL/SYR IV SCH ×3 (05:32→21:49)
[2022-01-08] MEDS: CALCIUM ACETATE 667 MG CAP PO SCH ×3 (07:47→18:00)
[2022-01-08] MEDS: Nepro With Carbsteady ButterPecan 8oz Carton PO SCH ×3 (07:47→18:00)
[2022-01-08 09:00] VITALS: BP 134/58
[2022-01-08] MEDS: FLUoxetine HCL 20 MG CAP PO SCH (09:46)
[2022-01-08] MEDS: METOPROLOL TARTRATE 25 MG TAB PO SCH ×2 (09:46→21:50)
[2022-01-08] MEDS: NIFEdipine ER 30 MG TAB PO SCH (09:47)
[2022-01-08 13:00] VITALS: BP 122/69
[2022-01-08] MEDS: ERGOCALCIFEROL 50,000 UNIT(1.25MG) CAP PO SCH (13:00)
[2022-01-08 17:13] VITALS: BP 124/52
[2022-01-08 22:00] VITALS: BP 110/42
[2022-01-09 05:00] VITALS: BP 134/67
[2022-01-09] MEDS: SODIUM CHLOR 0.9% PF (SALINE LOCK) 10ML VIAL/SYR IV SCH ×3 (06:00→22:00)
[2022-01-09] MEDS: ACCU-CHEK COMFORT CURVE STRIP VI SCH ×4 (06:01→22:00)
[2022-01-09] MEDS: INSULIN LANTUS (GLARGINE) 1 /0.01ml (100units/ml) SC SCH ×2 (06:05→22:00)
[2022-01-09] MEDS: oxyCODONE HCL 5MG TAB PO SCH ×3 (06:16→22:00)
[2022-01-09] MEDS ORDERED: SODIUM CHL 0.9% 1000 ML BAG XX ONE (07:00)
[2022-01-09] MEDS: Nepro With Carbsteady ButterPecan 8oz Carton PO SCH ×3 (08:00→18:02)
[2022-01-09] MEDS: CALCIUM ACETATE 667 MG CAP PO SCH ×3 (08:00→18:02)
[2022-01-09 09:00] VITALS: BP 153/68
[2022-01-09] MEDS: METOPROLOL TARTRATE 25 MG TAB PO SCH ×2 (09:35→22:52)
[2022-01-09] MEDS: NIFEdipine ER 30 MG TAB PO SCH (09:36)
[2022-01-09] MEDS: FLUoxetine HCL 20 MG CAP PO SCH (09:36)
[2022-01-09] MEDS: OXYCODONE W/ ACETAMINOPHEN 5/325MG TABLET PO PRN (10:00)
[2022-01-09] MEDS ORDERED: diphenhdrAMINE HCL 50 MG/1 ML VL IV ONE ×2 (10:30→11:15)
[2022-01-09 13:00] VITALS: BP 143/71
[2022-01-09] MEDS ORDERED: VANCOMYCIN 1,500 MG in D5W 5% 250 ML IV ONE (13:00)
[2022-01-09 17:00] VITALS: BP 127/60
[2022-01-09 21:35] LABS: Hematocrit 21.9 % (36.0-46.0)
[2022-01-09 22:00] VITALS: BP 128/62
[2022-01-09] MEDS: EPOETIN ALFA-EPBX 10,000 UNIT/1ML VIAL SC SCH (22:59)
[2022-01-09] MEDS: DOCUSATE SOD 100 MG CAP PO PRN (23:08)
[2022-01-09] MEDS: diphenhdrAMINE HCL 12.5 MG/5 ML UD PO PRN (23:08)
[2022-01-10] MEDS: OXYCODONE W/ ACETAMINOPHEN 5/325MG TABLET PO PRN ×3 (04:23→12:26)
[2022-01-10 05:00] VITALS: BP 117/47
[2022-01-10] MEDS: oxyCODONE HCL 5MG TAB PO SCH ×3 (06:00→21:58)
[2022-01-10] MEDS: SODIUM CHLOR 0.9% PF (SALINE LOCK) 10ML VIAL/SYR IV SCH ×3 (06:26→21:58)
[2022-01-10] MEDS: ACCU-CHEK COMFORT CURVE STRIP VI SCH ×4 (06:27→21:59)
[2022-01-10] MEDS: INSULIN LANTUS (GLARGINE) 1 /0.01ml (100units/ml) SC SCH ×2 (06:37→22:00)
[2022-01-10] MEDS: CALCIUM ACETATE 667 MG CAP PO SCH ×3 (08:19→17:25)
[2022-01-10] MEDS: FLUoxetine HCL 20 MG CAP PO SCH (08:19)
[2022-01-10] MEDS: METOPROLOL TARTRATE 25 MG TAB PO SCH ×2 (08:20→21:59)
[2022-01-10] MEDS: Nepro With Carbsteady ButterPecan 8oz Carton PO SCH ×3 (08:22→17:24)
[2022-01-10] MEDS: NIFEdipine ER 30 MG TAB PO SCH (08:22)
[2022-01-10 08:46] VITALS: BP 131/55
[2022-01-10 13:00] VITALS: BP 117/52
[2022-01-10] MEDS ORDERED: diphenhdrAMINE HCL 50 MG/1 ML VL IV ONE (16:00)
[2022-01-10 17:00] VITALS: BP 115/54
[2022-01-10 22:00] VITALS: BP 119/54
[2022-01-11] MEDS: OXYCODONE W/ ACETAMINOPHEN 5/325MG TABLET PO PRN ×2 (02:39→12:46)
[2022-01-11 05:00] VITALS: BP 119/54
[2022-01-11] MEDS: oxyCODONE HCL 5MG TAB PO SCH (06:38)
[2022-01-11] MEDS: SODIUM CHLOR 0.9% PF (SALINE LOCK) 10ML VIAL/SYR IV SCH (06:38)
[2022-01-11] MEDS: ACCU-CHEK COMFORT CURVE STRIP VI SCH ×2 (06:38→11:53)
[2022-01-11] MEDS: INSULIN LANTUS (GLARGINE) 1 /0.01ml (100units/ml) SC SCH (06:40)
[2022-01-11] MEDS ORDERED: SODIUM CHL 0.9% 1000 ML BAG XX ONE (07:00)
[2022-01-11] MEDS: Nepro With Carbsteady ButterPecan 8oz Carton PO SCH ×2 (07:51→11:53)
[2022-01-11] MEDS: CALCIUM ACETATE 667 MG CAP PO SCH ×2 (08:00→11:53)
[2022-01-11 08:59] VITALS: BP 99/35
[2022-01-11] MEDS: METOPROLOL TARTRATE 25 MG TAB PO SCH (09:35)
[2022-01-11] MEDS: FLUoxetine HCL 20 MG CAP PO SCH (09:36)
[2022-01-11] MEDS: NIFEdipine ER 30 MG TAB PO SCH (09:36)
[2022-01-11 10:45] VITALS: BP 118/52
[2022-01-11 13:00] VITALS: BP 118/52
[2022-01-11] MEDS: EPOETIN ALFA-EPBX 10,000 UNIT/1ML VIAL SC SCH (13:47)
== END 2022-01-11 12:45 | DRG 720 ==
LOC: ER 01:48 → EDBD 01:48 → TELE 15:38 → TELE-WESTW 19:23
PROVIDERS: ADMIT Internal Medicine; ATTEND Internal Medicine
PROC: 5A1D70Z Performance of Urinary Filtration, Intermittent, Less than 6 Hours Per Day (ICD-10-PCS; 2021-12-16)
PROC: 0JH63XZ Insertion of Tunneled Vascular Access Device into Chest Subcutaneous Tissue and Fascia, Percutaneous Approach (ICD-10-PCS; principal; 2021-12-19)
PROC: 02H633Z Insertion of Infusion Device into Right Atrium, Percutaneous Approach (ICD-10-PCS; 2021-12-19)
PROC: B548ZZA Ultrasonography of Superior Vena Cava, Guidance (ICD-10-PCS; 2021-12-19)
PROC: B518YZA Fluoroscopy of Superior Vena Cava using Other Contrast, Guidance (ICD-10-PCS; 2021-12-19)
PROC: 0J2VXYZ Change Other Device in Upper Extremity Subcutaneous Tissue and Fascia, External Approach (ICD-10-PCS; 2021-12-19)
PROC: B518YZA Fluoroscopy of Superior Vena Cava using Other Contrast, Guidance (ICD-10-PCS; 2021-12-19)
PROC: 0J2VXYZ Change Other Device in Upper Extremity Subcutaneous Tissue and Fascia, External Approach (ICD-10-PCS; 2021-12-20)
PROC: B518YZA Fluoroscopy of Superior Vena Cava using Other Contrast, Guidance (ICD-10-PCS; 2021-12-20)
PROC: 5A1D70Z Performance of Urinary Filtration, Intermittent, Less than 6 Hours Per Day (ICD-10-PCS; 2021-12-20)
PROC: 5A1D70Z Performance of Urinary Filtration, Intermittent, Less than 6 Hours Per Day (ICD-10-PCS; 2021-12-21)
PROC: 5A1D70Z Performance of Urinary Filtration, Intermittent, Less than 6 Hours Per Day (ICD-10-PCS; 2021-12-25)
PROC: 5A1D70Z Performance of Urinary Filtration, Intermittent, Less than 6 Hours Per Day (ICD-10-PCS; 2021-12-27)
PROC: 5A1D70Z Performance of Urinary Filtration, Intermittent, Less than 6 Hours Per Day (ICD-10-PCS; 2022-01-01)
PROC: 5A1D70Z Performance of Urinary Filtration, Intermittent, Less than 6 Hours Per Day (ICD-10-PCS; 2022-01-03)
PROC: 5A1D70Z Performance of Urinary Filtration, Intermittent, Less than 6 Hours Per Day (ICD-10-PCS; 2022-01-07)
PROC: 5A1D70Z Performance of Urinary Filtration, Intermittent, Less than 6 Hours Per Day (ICD-10-PCS; 2022-01-09)
PROC: 5A1D70Z Performance of Urinary Filtration, Intermittent, Less than 6 Hours Per Day (ICD-10-PCS; 2022-01-10)
DX: A41.9 Sepsis, unspecified organism (principal); N17.0 Acute kidney failure with tubular necrosis; J96.01 Acute respiratory failure with hypoxia; D63.1 Anemia in chronic kidney disease; E87.1 Hypo-osmolality and hyponatremia; I12.0 Hypertensive chronic kidney disease with stage 5 chronic kidney disease or end stage renal disease; E88.09 Other disorders of plasma-protein metabolism, not elsewhere classified; M48.54XA Collapsed vertebra, not elsewhere classified, thoracic region, initial encounter for fracture; N18.6 End stage renal disease; E11.65 Type 2 diabetes mellitus with hyperglycemia; M79.18 Myalgia, other site; N39.0 Urinary tract infection, site not specified; E87.5 Hyperkalemia; F20.9 Schizophrenia, unspecified; F41.9 Anxiety disorder, unspecified; E66.01 Morbid (severe) obesity due to excess calories; G89.29 Other chronic pain; J98.11 Atelectasis; E11.22 Type 2 diabetes mellitus with diabetic chronic kidney disease; E55.9 Vitamin D deficiency, unspecified; E11.51 Type 2 diabetes mellitus with diabetic peripheral angiopathy without gangrene; M54.50 Low back pain, unspecified; Z20.822 Contact with and (suspected) exposure to COVID-19; Z68.44 Body mass index [BMI] 60.0-69.9, adult; Z74.01 Bed confinement status; Z79.01 Long term (current) use of anticoagulants; Z79.4 Long term (current) use of insulin; Z89.511 Acquired absence of right leg below knee; Z89.612 Acquired absence of left leg above knee; Z90.710 Acquired absence of both cervix and uterus; Z99.2 Dependence on renal dialysis; Z90.49 Acquired absence of other specified parts of digestive tract; Z91.81 History of falling; Z88.1 Allergy status to other antibiotic agents; Z88.8 Allergy status to other drugs, medicaments and biological substances
CPT/HCPCS: 36415; 36600; 71045; 72131; 72148; 73700; 76775; 76942; 80048; 80053; 80074; 81001; 82306; 82550; 82805; 82947; 82962; 83036; 83880; 83970; 84100; 85007; 85014; 85018; 85025; 85027; 85379; 85610; 85730; 86706; 86850; 86900; 86901; 86920; 87040; 87077; 87081; 87086; 87186; 87205; 87340; 87426; 90935; 93005; 94640; 94645; 96361; 96365; 96367; 96375; 96376; 97110; 97163; 97530; 99152; 99153; G0378; J0696; J1642; J1815; J1956; J2185; J2250; J2405; J2543; J7060; P9047